=== PATIENT | male | born 1960 | race Caucasian/White ===

== ENCOUNTER 2019-11-29 00:18 | Day surgery (SDC) | payer OTHER, SELFPAY ==
[2019-11-22 12:04] VITALS: BMI 35.6
--- NOTE | 2019-11-29 07:26 | P.PNAN_ITS ---
Anes - Initial Pre Proc Eval Procedure: Operation Date: 11/29/19 08:30 Proposed Procedures p Screening Colonoscopy - Kenton Curran MD Date/Time: 11/29/19 07:26 Surgeon: Kenton Curran MD Pre Op Diagnosis: neoplasm screening, family hx colon polyps Patient Data Age: 59 Gender: M Height: 5 ft 11 in Weight: 116 kg Allergies Allergy/AdvReac Type Severity Reaction Status Date / Time No Known Allergies Allergy Unknown Unverified 11/22/19 12:00 Home Medications Medication Instructions Recorded Confirmed Type atorvastatin 40 mg PO HS 11/22/19 11/22/19 History glucosamine VCb-[id number]-[id number] 2 tablet PO DAILY 11/22/19 11/22/19 History losartan-hydrochlorothiazide 1 tablet PO QAM 11/22/19 11/22/19 History vitamin O68-ukutn acid 1 tablet PO DAILY 11/22/19 11/22/19 History Patient hx anesthesia problems: none Family hx anesthesia problems: none [facility] [place] Past Medical History Medical History (Updated 11/29/19 @ 07:26 by Gary Gaviria MD) Diabetes Hyperlipidemia Hypertension Anes - Eval Final PreProcedure Day of Procedure 11/29/19 07:26 Patient weight: obese Heart: regular rate and rhythm Lungs: clear to auscultation Airway: Mallampati scale class III Neurological: alert and oriented Last oral intake: >/= 8 hours ASA classification: III Emergent: no Anesthetic plan: proceed Anesthesia type and monitoring: general GIVS and standard monitoring Informed Consent: The patient's anesthetic plan and its attendant risks and benefits were discussed with the patient/family/POA. Questions were solicited and answers provided to the satisfaction of the patient/family/POA.
[2019-11-29] MEDS: LACTATED RINGERS 1,000 ML 150 ML IV CONT (07:38)
[2019-11-29 07:51] LABS: Glucose Point of Care 203 (65-105)
[2019-11-29 07:55] VITALS: BP 146/106; PULSE 109; RESP 20; TEMP 36.9; O2SAT 96; BMI 35.7
--- NOTE | 2019-11-29 08:09 | P.CONGI_ITS ---
Assessment and Plan Additional Plan This is a 59-year-old white male patient seen in evaluation at the request of Dr. Radu Ramos. Patient presents for screening surveillance colonoscopy. His current weight appetite bowel movements are normal. He denies any abdominal pain. His bowel habits are regular. He denies any blood in his stools. Family history is significant his mother has had colon polyps. Past medical history is significant for diabetes, hypertension, elevated cholesterol. Current medications include metformin, losartan, hydrochlorothiazide, glucosamine, atorvastatin, aspirin. He has no known drug allergies. Physical exam reveals him to be alert. Oriented x3. HEENT exam unremarkable. He is anicteric. Lungs are clear to auscultation and percussion. Heart is without murmur or extra sounds. Abdominal exam bowel sounds are present soft nontender with no organomegaly. Digital external rectal exam is normal. Impression 1. Family history of colon polyps. 2. Diabetes. 3. Hypertension, 4. Elevated cholesterol. Plan is for surveillance colonoscopy. High-fiber diet is advised. Further recommendations will be given after endoscopy. GI Consult Note Consult date/time: 11/29/19 08:09 HPI: Peyman Sims is a 59 year old male [facility] Past Medical History Medical History (Updated 11/29/19 @ 07:26 by Gary Gaviria MD) Diabetes Hyperlipidemia Hypertension Meds Home Medications and Allergies Home Medications Medication Instructions Recorded Confirmed Type atorvastatin 40 mg PO HS 11/22/19 11/29/19 History glucosamine CAc-chz-[id number] 2 tablet PO DAILY 11/22/19 11/29/19 History losartan-hydrochlorothiazide 1 tablet PO QAM 11/22/19 11/29/19 History vitamin R23-vdifp acid 1 tablet PO DAILY 11/22/19 11/29/19 History aspirin [Adult Low Dose Aspirin] 81 mg PO DAILY 11/29/19 11/29/19 History metformin 500 mg PO DAILY 11/29/19 11/29/19 History Allergies Allergy/AdvReac Type Severity Reaction Status Date / Time No Known Allergies Allergy Unknown Unverified 11/22/19 12:00 Vital Signs Vital Signs - 24 hr 11/29/19 07:55 Temperature 36.9 C Pulse Rate 109 H Respiratory Rate 20 Blood Pressure 146/106 H Pulse Oximetry 96
[2019-11-29 09:08] VITALS: BP 120/78; PULSE 73; RESP 21
[2019-11-29 09:18] VITALS: BP 112/91; PULSE 75; RESP 21
[2019-11-29 09:28] VITALS: BP 121/83; PULSE 74; RESP 20
== END 2019-11-29 10:14 | disposition home or self-care (01) ==
PROVIDERS: PCP Family Medicine; Visit Provider Internal Medicine Gastroenterology
PROC: 0DJD8ZZ Inspection of Lower Intestinal Tract, Via Natural or Artificial Opening Endoscopic (ICD-10-PCS; CPT 45378; principal; 2019-11-29 08:30)
DX: Z12.11 Encounter for screening for malignant neoplasm of colon (principal); D12.5 Benign neoplasm of sigmoid colon; K57.30 Diverticulosis of large intestine without perforation or abscess without bleeding; K64.8 Other hemorrhoids; Z83.71 Family history of colonic polyps; I10 Essential (primary) hypertension; E11.9 Type 2 diabetes mellitus without complications; E78.00 Pure hypercholesterolemia, unspecified; Z79.84 Long term (current) use of oral hypoglycemic drugs; Z79.82 Long term (current) use of aspirin; E66.9 Obesity, unspecified; Z68.35 Body mass index [BMI] 35.0-35.9, adult
CPT/HCPCS: 45385; 88305; J2704; J7120

== ENCOUNTER 2024-01-05 13:10 | Outpatient (CLI) | payer MEDICARE, SELFPAY ==
--- NOTE | ~2024-01-05 | XR_ITS ---
Right Knee Technique: AP, lateral, and sunrise views were obtained. Clinical History: Pain Findings: No fracture or dislocation is seen. There is medial compartment narrowing with moderate ost eophyte formation of the patellofemoral compartment and medial joint line and intercondylar notch. Th ere are probable patellofemoral compartment narrowing.. Leogn-nx-xlvqfcwy joint effusion is seen. Impression: Severe degenerative change of the medial and patellofemoral compartment. Small to moderate joint effusion. Reviewed, dictated and finalized at location M. Impression: Severe degenerative change of the medial and patellofemoral compartment. Small to moderate joint effusion.
--- NOTE | ~2024-01-05 | XR_ITS ---
Left Knee Technique: AP, lateral, and sunrise views were obtained. Clinical History: Pain Findings: No fracture or dislocation is seen. There is moderate tricompartmental osteophyte formation . There is a 1.6 cm loose body at the posterior aspect of the knee joint. Possible additional 8 mm lo ose body posteriorly versus fabella.. Soft tissues are otherwise unremarkable. No joint effusion is s een. Impression: Moderate tricompartmental degenerative change with probable posterior loose bodies, as detailed above . Reviewed, dictated and finalized at location M. Impression: Moderate tricompartmental degenerative change with probable posterior loose bod ies, as detailed above.
== END 2024-01-05 13:11 | disposition home or self-care (01) ==
PROVIDERS: PCP Family Medicine; Visit Provider Orthopaedic Surgery
DX: M25.561 Pain in right knee (principal); M25.562 Pain in left knee; M17.0 Bilateral primary osteoarthritis of knee; M25.461 Effusion, right knee
CPT/HCPCS: 73564

== ENCOUNTER 2024-02-07 08:33 | Outpatient (CLI) | payer MEDICARE, SELFPAY ==
--- NOTE | 2024-02-07 09:06 | ECG_ITS ---
SEE SCANNED COPY FOR CONFIRMED REPORT MTDD
[2024-02-07 09:16] LABS: Hematocrit 51.1 % (42.0-52.0); Hemoglobin 17.5 g/dL (14.0-18.0)
[2024-02-07 09:28] LABS: Hemoglobin A1C 6.5 % (<5.7)
[2024-02-07 09:49] LABS: Albumin Level 4.5 g/dL (3.5-5.1); Estimated Glomerular Filt Rate > 60; Glucose 178 mg/dL (65-110)
== END 2024-02-07 08:34 | disposition home or self-care (01) ==
PROVIDERS: PCP Family Medicine; Visit Provider Orthopaedic Surgery
DX: Z01.818 Encounter for other preprocedural examination (principal); M17.11 Unilateral primary osteoarthritis, right knee; E11.9 Type 2 diabetes mellitus without complications; I10 Essential (primary) hypertension
CPT/HCPCS: 36415; 82040; 82565; 82947; 83036; 85014; 85018; 93005

== ENCOUNTER 2024-08-06 11:23 | Outpatient (CLI) | payer MEDICARE, SELFPAY ==
--- NOTE | ~2024-08-06 | XR_ITS ---
Right Knee Technique: AP, lateral, and sunrise views were obtained. Clinical History: Pain Findings: No fracture or dislocation is seen. There is severe lateral compartment narrowing with bone -on-bone appearance. There is advanced osteophyte formation at the intercondylar notch and lateral basilio int line. There is moderate spurring at the medial compartment and patellofemoral compartment.. Moder ate joint effusion is seen. 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 Moderate joint effusion. Reviewed, dictated and finalized at location M. 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 Moderate joint effusion.
--- NOTE | ~2024-08-06 | XR_ITS ---
Left Knee Technique: AP, lateral, and sunrise views were obtained. Clinical History: Osteoarthritis Findings: No fracture or dislocation is seen. There is medial compartment narrowing. There is moderat e tricompartmental degenerative change/spurring. Loose bodies posteriorly measuring 1.9 and 1.2 cm in diameter.. Soft tissues are unremarkable. No joint effusion is seen. Impression: Moderate tricompartmental degenerative change with posterior loose bodies, possibly within a Quinteros's cyst, as detailed above. Reviewed, dictated and finalized at location M. Impression: Moderate tricompartmental degenerative change with posterior loose bodies, poss ibly within a Quinteros's cyst, as detailed above.
== END 2024-08-06 11:24 | disposition home or self-care (01) ==
PROVIDERS: PCP Family Medicine; Visit Provider Orthopaedic Surgery
DX: M17.11 Unilateral primary osteoarthritis, right knee (principal); M25.461 Effusion, right knee; M17.12 Unilateral primary osteoarthritis, left knee
CPT/HCPCS: 73564

== ENCOUNTER 2024-11-15 11:54 | Outpatient (CLI) | payer MEDICARE, SELFPAY ==
[2024-11-15 13:13] LABS: Basophils Absolute Auto 0.1 K/mm3 (0.0-0.1); Eosinophils Absolute Auto 0.1 K/mm3 (0-0.3); Eosinophils Percent Auto 1.7 % (0-4.4); Hematocrit 50.9 % (42.0-52.0); Hemoglobin 17.8 g/dL (14.0-18.0); Immature Granulocyte Absolute 0.03 K/mm3 (0.00-0.031); Immature Granulocyte Percent A 0.5 % (0-0.5); Lymphocytes Absolute Auto 1.79 K/mm3 (0.9-3.2); Lymphocytes Percent Auto 29.6 % (18.3-44.2); Mean Corpuscular Hemoglobin 31.1 pg (26-34); Mean Corpuscular Volume 88.8 fl (80-100); Mean Platelet Volume 9.2 fl (7.4-10.4); Monocytes Absolute Auto 0.5 K/mm3 (0.1-0.6); Monocytes Percent Auto 7.9 % (2.6-8.5); Neutrophils Absolute Auto 3.6 K/mm3 (1.3-6.7); Neutrophils Percent Auto 59.3 % (45.5-73.1); Platelet Count Result 192 k/mm3 (150-375); Red Blood Count 5.73 M/mm3 (4.6-6.20); Red Cell Distribution Width 12.5 % (11.5-14.5); White Blood Count 6.1 K/mm3 (4.5-10.0)
[2024-11-15 13:25] LABS: Albumin Level 4.5 g/dL (3.5-5.1)
[2024-11-15 13:26] LABS: Hemoglobin A1C 6.7 % (<5.7)
[2024-11-15 13:27] LABS: Urine Cotinine NEGATIVE
[2024-11-15 13:28] LABS: Anion Gap 11 mmol/L (4-12); Blood Urea Nitrogen 18 mg/dL (9-20); Calcium 9.2 mg/dL (8.4-10.2); Carbon Dioxide 27 mmol/L (22-30); Chloride 103 mmol/L (98-107); Estimated Glomerular Filt Rate > 60; Glucose 112 mg/dL (65-110); Potassium 4.2 mmol/L (3.4-5.0); Sodium 141 mmol/L (137-145)
[2024-11-15 14:21] LABS: MRSA (PCR) NOT DETECTED (NOT DETECTE)
== END 2024-11-15 11:55 | disposition home or self-care (01) ==
LOC: ANHSURGERY 12:00
PROVIDERS: Anesthesiology; PCP Family Medicine; Visit Provider Orthopaedic Surgery
DX: Z01.812 Encounter for preprocedural laboratory examination (principal); M17.11 Unilateral primary osteoarthritis, right knee; E11.9 Type 2 diabetes mellitus without complications
CPT/HCPCS: 36415; 80048; 80307; 82040; 83036; 85025; 87641

== ENCOUNTER 2024-12-02 02:47 | Day surgery (SDC) | payer MEDICARE, SELFPAY ==
--- NOTE | 2024-11-15 11:47 | PC.NURSE ---
Report to the Outpatient Waiting Room, entrance under the green pavilion located off [facility], at time 10 AM on date 12/02/24 . Planned Procedure Time: __1200 NOON .? Time changes happen often and if your time is changed the preop area will call you the afternoon before. - You and your visitor will be asked to self-screen and do not enter if you have any COVID symptoms. Please call surgeon if you need to reschedule. - A mask is optional within the hospital at this time. Patients may have clear liquids (water, carbonated beverages, clear teas, apple juice) until 3 hours prior to surgery ( 9 AM) with a maximum of 20 ounces. - No food from midnight until time of surgery and no smoking. This includes no chewing gum, candy or mints. Take only the following medications with a SIP of water on the morning of surgery: NONE DO NOT STOP ANY OF YOUR OTHER PRESCRIPTION MEDICATIONS PRIOR TO SURGERY EXCEPT THE FOLLOWING Medications to discontinue per physician HOLD ALL VITAMINS AND SUPPLEMENTS 3 DAYS PRE OP Date to take last dose__11/28/24 Please no make-up, nail bengali, hairspray, perfume, deodorant, or body powder the day of surgery.? No jewelry (including any body piercings) or valuables the day of surgery, leave them at home.? Please take a shower or bath the night before, or the morning of, surgery with an antibacterial soap.? Wear comfortable, loose fitting clothing.? Children are encouraged to wear pajamas. - Jewelry must be removed prior to entering the operating room.? Rings and piercings that are not removed may be cut off. - The hospital will not accept responsibility for valuables.? - Please leave all valuables, including medications, at home the day of surgery. If you are going home after surgery, a licensed xm[employer] tank driver must drive you home.? - NO public transportation without another adult if you receive anesthesia. - We recommend that an adult stay with you for 24 hours following discharge. - We also recommend that you do not drive, make important decision, drink alcoholic beverages, or take any drugs that were not prescribed by your health care provider for at least 24 hours after your discharge time. Follow any additional instructions given to you from your surgeon. VERBAL AND WRITTEN instructions given to _PATIENT__AND CHAD and asked if any additional questions and then verbalized understanding. Patient advised to call surgeon office or pre surgery nurse liaison [phone] if any additional questions.
[2024-11-15 12:04] VITALS: BMI 33.3
[2024-11-15 12:41] VITALS: BP 137/90; PULSE 92; RESP 18; TEMP 36.7; O2SAT 98
[2024-12-02] VITALS (9 sets, daily range): BP systolic 140–165; BP diastolic 78–100; PULSE 71–89; RESP 12–20; TEMP 36.6–37.4; O2SAT 95–99; BMI 33.2
--- NOTE | ~2024-12-02 | XR_ITS ---
EXAMINATION: [id number] DATE: 12/02/2024 15:19 INDICATION: Right knee arthroplasty. Postop. TECHNIQUE: 2 views of right knee were obtained. COMPARISON: Right knee radiographs 08/06/24 FINDINGS: There is a total right knee arthroplasty with patellar resurfacing. Tibia demonstrates 7 de grees medial angulation with respect to the tibial component. No fracture. There is gas in the knee j oint and soft tissues, consistent with recent surgery. IMPRESSION: 1. New total right knee arthroplasty. Reviewed, dictated and finalized at location A. [facility]
--- OUTSIDE RECORDS SUMMARY | 2024-12-02 02:50 | XMS_ITS | Data Portability ---
Author Organization [place] - [facility], Main Office Address [address] [place] [address] Care Team Providers Care Search Developer Name Role Phone HODA CHOI Primary Care Provider HODA CHOI Referring Provider Assessment Encounter Date Assessment Date Assessment LastModified by Organization Details LastModified Time 02/21/2023 02/21/2023 Patient presents knee pain left greater than right. He has significant arthritis in both knees. 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 If for his right and left knees got vpen-rm-eovk change medially and he has got significant pain with any manipulation. Neurologically he is intact. Will try an injection this done with 20 mg Kenalog 4 cc 1% lidocaine. For prescription drug management will try prednisone taper. He will continue with exercises at home. Follow-up in a month. If no better he will need knee replacement surgery. [email or web address] Not available 02/21/2023 15:55:15 03/23/2023 03/23/2023 Patient returns knee pain left greater than right. He has arthritis in both knees significant valgus deformity on the right and moderate varus deformity on the left, the left knee is the most painful one. I injected the left knee and gave him a prednisone taper he seems to have the pain seems to have resolved to a large degree he can live with what he has at this point clearly he will need knee replacement surgery at some point however I told him when he is ready we can do it he is not having too much pain at this point wants leave it alone discussed. [email or web address] Not available 03/23/2023 11:22:19 06/12/2023 06/12/2023 Patient returns with arthritis right and left knee. The right left 1 is much more painful. He got good relief the injection adjusted last. He remains symptomatic. He does have some mechanical catching and pain in the knee and I recommended an MRI scan to make sure he does not have a tear. The arthritis in his right knee is much worse but it is right knee does not hurt as badly as his left. I reinjected the left knee with 20 mg Kenalog 4 cc 1% lidocaine. For prescription drug management will try Voltaren for pain and inflammation. We will get an MRI scan to evaluate for meniscal pathology. As he is having more pain in the less arthritic knee. [email or web address] Not available 06/12/2023 11:06:28 06/19/2023 06/19/2023 Patient returns knee pain left. Despite the fact he has more arthritis in his right knee is left knee is what is bothering him at this point. He got somewhat better after the injection that I gave him however he does have catching and locking in the knee consistent with meniscal tear. He presents with an MRI scan. I reviewed the pictures and the report with the patient in detail and they show a meniscal tear. I recommended arthroscopic intervention for his medial meniscal tear. Discussed risks benefits limitations and alternatives in detail. I will see him back in a month after the surgery is performed discussed. [email or web address] Not available 06/19/2023 09:48:01 Plan of Treatment Reminders Order Date Submit Date Provider Last Modified By Organization Details Last Modified Time Details Appointments None recorded. Lab BMP, serum or plasma - Please fax results to DX Diabetes 2022 023 [email or web address] In-Office Order, Internal Use Only DO Not Attach Compendium DO Not Attach Compendium, Do Not Delete/merge, [id number] 10:20:36 Referral None recorded. Procedures injection/a spiration joint/bursa (PROC) - in office procedure, administere d by provider 2022 023 [email or web address] In-Office Order, Internal Use Only DO Not Attach Compendium DO Not Attach Compendium, Do Not Delete/merge, [id number] 3 15:29:26 injection/a spiration joint/bursa (PROC) - in office procedure, administere d by provider 2022 023 [email or web address] In-Office Order, Internal Use Only DO Not Attach Compendium DO Not Attach Compendium, Do Not Delete/merge, [id number] 3 10:42:05 Surgeries None recorded. Imaging XR, knee 2022 023 [facility] [place], [address], [place], [address], 3 15:55:04 MRI, knee, w/o contrast 2022 023 [email or web address] [facility], [address], [place], [address], 3 12:14:48 electrocard iogram - Please fax results to [phone] [facility] 2022 023 [email or web address] In-Office Order, Internal Use Only DO Not Attach Compendium DO Not Attach Compendium, Do Not Delete/merge, [id number] 3 11:50:44 Medication Orders Kenalog 10 mg/mL suspension for injection 2022 023 [email or web address] [address] [facility] #62782, [address] [place], [place], [id number], 3 15:48:56 ropivacaine (PF) 5 mg/mL (0.5 %) injection solution 2022 023 [facility] #80694, [address], [place], [id number], 3 15:48:56 prednisone 10 mg tablets in a dose pack 2022 023 [facility] #88991, [address], [place], [id number], 3 15:48:56 Kenalog 10 mg/mL suspension for injection 2022 023 [facility] #23127, [address], [place], [id number], 3 10:45:09 ropivacaine (PF) 5 mg/mL (0.5 %) injection solution 2022 023 [facility] #86393, [address] [facility], [place], [place], [id number], 3 10:45:09 diclofenac sodium 75 mg tablet,marvin yed release 2022 023 [facility] #77672, [address], [place], [id number], 3 11:07:40 Patient TargetsNo targets recorded. Patient InstructionsNo instructions recorded. Reason for Referral None Reported. Results Created Date Observation Date Name Description Value Unit Range Abnormal Flag Note LastModifiedBy Organization Detail LastModifiedTime 02/22/20 23 XR, knee No observ ation record ed. [email or web address] [facility] [place] [address], [place], [address], 02/21/2023 15:55:04 06/14/20 23 MRI knee lt wo [facility] [address] [address] Patien t Name: BLAKE SIMS Access ion #: [id number] Sex: M : 1959 Dictat ed By: Dea merino Physic herman: Rachael Physic herman: LINDA WOOD Exam Date: 2022 09:22 AM Exam Name: MRI KNEE LT WO Admitt ing Diagno sis(es ): CLINIC AL INFORM ATION: Pain. Medial pain. No known injury . COMPAR BEA: None. TECHNI TREVA INFORM ATION: Multis equenc e multip lanar MRI images of the left knee were obtain ed withou t contra st. During was perfor med and an open MRI scanne r with 0.3 Radha magnet , which limits evalua tion compar ed to higher field streng th MRI scanne rs. INTERP RETATI ON: Crucia te ligame nts: ACL and PCL appear intact . Extens or mechan ism: Thania ceps mechan ism and patell ar tendon are intact . Mild fluid in the prepat ellar and superf icial infrap atella r soft tissue s. Collat eral ligame nts: Trace fluid along the superf icial fibers of the medial collat eral ligame nt consis tent with a grade 1 sprain . Latera l collat eral ligame nt appear s intact . Menisc i: Horizo ntal tear in the body of the medial menisc us extend ing near the body/a nterio r horn juncti on. Suspec cherrie flap compon ent of the tear extend ing into the adjace nt inferi or gutter . No tear identi fied in the latera l menisc us. Cartil age: Modera te chondr al frayin g and fissur ing in the medial compar tment. Severe chondr al thinni ng, frayin g, and likely modera te fissur ing in the patell ofemor al compar tment, althou gh limite d evalua tion of the articu lar cartil age on this exam due to techni que/fi eld streng . Bones: No eviden ce of acute fractu re. Arthri tic change s in the medial compar tment with joint space narrow ing, subcho ndral cystic change , and promin ent margin al osteop hytes. Joint fluid: No signif icant joint effusi on. Poplit eal cyst measur es up to 6 cm proxim al to distal dimens ion. There are T2 hypoin tense loose bodies within the poplit eal cyst. 1.4 cm cystic struct ure manager employment ior to the latera l femora l condyl e, appear s techni que 8 with the joint, likely gangli on cyst. Other: No other signif icant findin gs. Page 1 [facility] [address] [place] [address] Patien t Name: BLAKE SIMS Access ion #: [id number] Sex: M : 1959 Dictat ed By: Dea soni Attend ing Physic herman: , Rachael ferrara Physic herman: LINDA WOOD Exam Date: 2022 09:22 AM Exam Name: MRI KNEE LT WO Admitt ing Diagno sis(es ): CONCLU BLAYNE: 1. Horizo ntal tear in the body of the medial menisc us with suspec cherrie flap compon ent extend ing into the adjace nt inferi or gutter . 2. Grade 1 sprain of the MCL. 3. Chondr omalac ia in the medial and patell ofemor al compar tments , subopt imally evalua cherrie due to techni treva factor s in this exam. 4. Poplit eal cyst with loose bodies . 5. Likely gangli on cyst along the manager employment ior aspect of the latera l compar tment. 6. Additi onal findin gs as detail ed above. Electr onical ly Signed by: Dea soni at 2022 17:03: 38 PM Page [address] (Imaging) [address] [place], [address], 06/15/2023 07:41:43 Result Notes None recorded. Problems Name Problem SNOMED Code Status Onset Date Resolution Date Notes Provider Name and Address Organization Details Recorded Time Type 2 diabetes mellitus 59814306 Active 2018 Not Available [employer] 3 17:45:25 Pain of left knee joint 7959786776886 07 Active 2022 JOSE DE JESUS Moore, [employer] 3 15:07:35 Bilateral osteoarthr itis of knees 0903860820528 07 Active 2022 Linda Anderson MD [address] [facility], [address], [place], [address] , [employer] 3 15:53:41 Tear of medial meniscus of knee 932586148 Active 2022 Linda Anderson MD [address] [facility], [place] [address], [place], [address] , [facility] [employer] [facility] 3 11:06:40 Problem Notes None recorded. Procedures Surgical History Date Name Laterality Status Provider Name and Address Organization Details Recorded Time 3 Ortho - Cortisone Injection completed Linda Anderson MD [address] [facility], [address] [address], [place], [address], [facility] [employer] [facility] 06/12/2023 11:05:12 3 Ortho - Cortisone Injection completed Linda Anderson MD [address] [facility], [address] [address], [place], [address], [facility] [employer] [facility] 02/21/2023 15:53:03 5 Knee completed Saima Julian CNA [facility] [employer] [facility] 02/21/2023 15:07:08 Imaging Results Imaging Date Name Status LastModified by Organiz ation Details LastModified Time 02/21/2023 XR, knee completed sandhya [facility] [place] [address], [place], [address], 02/21/2023 15:55:04 06/14/2023 MRI knee lt wo completed sandhya [facility] (Imaging) [address] [place], [address], 06/15/2023 07:41:43 Procedure Notes None recorded. Medical Equipment None Reported. Allergies No known drug allergies Medications Name Sig Start Date Stop Date Status Note LastModified by Organization Details LastModified Time atorvastati n 40 mg tablet TAKE 1 TABLET BY MOUTH EVERY DAY active Not Available Not Available No t Available metformin 500 mg tablet Take 1 tablet every day by oral route. 02/21 completed Not Available Not Available Not Available prednisone 10 mg tablet active Not Available Not Available Not Available meloxicam 15 mg tablet 07/07 completed Not Available Not Available Not Available sildenafil 100 mg tablet TAKE 1 TABLET BY MOUTH ONCE DAILY NEEDED 02/21 completed Not Available Not Available Not Available prednisone 10 mg tablets in a dose pack Take 1 tab by mouth, 3 times a day for 3 daysTake 1 tab by mouth 2 times a day for 2 daysTake 1 tab by mouth once a day for 1 day 2022 active Not Available Not Available Not Avai lable Kenalog 10 mg/mL suspension for injection in office 2022 active [facility]: 0003- 0494- 20 Not Available Not Available Not Available cephalexin 500 mg capsule Take 1 capsule 3 times a day by oral route for 10 days. 04/01 completed Not Available Not Available Not Available diclofenac sodium 75 mg tablet,marvin yed release TAKE 1 TABLET BY MOUTH TWICE DAILY active Not Available Not Available No t Available losartan 100 mg tablet 04/01 completed Not Available Not Available Not Available metformin ER 500 mg tablet,exte nded release 24 hr TAKE 1 TABLET BY MOUTH TWICE DAILY active Not Available Not Available No t Available ropivacaine (PF) 5 mg/mL (0.5 %) injection solution in office 2022 active [facility] [address] -[phone] Not Available Not Available Not Available Farxiga 10 mg tablet TAKE 1 TABLET BY MOUTH DAILY active Not Available Not Available No t Available Vitals Date Recorded Body height Body mass index (BMI) Body weight Provider Name and Address Organization Details Last Updated DateTime 02/21/2023 180.34 cm 34.2 kg/m2 555815.13 g Saima Julian CNA [employer] 02/21/2023 15:05:41 Date Recorded Body height Body mass index (BMI) Body weight Provider Name and Address Organization Details Last Updated DateTime 03/23/2023 180.34 cm 34.2 kg/m2 508518.13 g Saima Julian CNA [employer] 03/23/2023 11:01:03 Date Recorded Body height Body mass index (BMI) Body weight Provider Name and Address Organization Details Last Updated DateTime 06/12/2023 180.34 cm 34.2 kg/m2 494870.13 g GURINDER Vick [employer] 06/12/2023 10:40:52 Date Recorded Body height Body mass index (BMI) Body weight Provider Name and Address Organization Details Last Updated DateTime 06/19/2023 180.34 cm 34.2 kg/m2 653911.13 g Saima Julian CNA [employer] 06/19/2023 09:30:28 Social History Question Answer Notes LastModified by Organizat ion Details LastModified Time Tobacco Smoking Status Never Smoker Saima Julian CNA null, [employer] 02/21/2023 15:06:55 What Is Your Level Of Alcohol Consumption? Occasional [email or web address] Information not available 02/21/2023 Sex: Unknown Functional Status None recorded. Mental Status None recorded. Family History Relationship Description Onset Age of this Age Resolved Age Notes LastModified by Organization Details LastModified Time Mother Family history of malignant neoplasm [email or web address] Not available 2022 15:06:30 Father Hypertensive disorder [email or web address] Not available 2022 15:06:42 Medical History Condition Response DIABETES, TYPE Y Immunizations Vaccine Type Date Status Note Provider Nam e and Address Organization Details Recorded Time Tdap 07/18/2019 completed Not Available [employer] 12/21/2022 17:47:36 Past Encounters Encounter ID Performer Location Encounter Start Date Encounter Closed Date Diagnosis/Indication Diagnosis SNOMED-CT Code Diagnosis ICD10 Code Diagnosis Note [id number] Linda Anderson MD [facility] [place] [address] [place] [address] 02/21/2023 14:54:42 02/21/2023 15:48:18 Pain of left knee joint 6576002639 57474 M25.562 Bilateral osteoarthritis of knees 8411549699 18419 M17.0 [id number] Linda Anderson MD [facility] [place] [address] [place] [address] 03/23/2023 10:54:08 03/23/2023 11:24:20 Pain of left knee joint 5780711382 00544 M25.562 Bilateral osteoarthritis of knees 8605851560 91593 M17.0 [id number] Linda Anderson MD [facility] [place] [address] [place] [address] 06/12/2023 10:37:18 06/12/2023 11:09:17 Pain of left knee joint 7479989664 50709 M25.562 Bilateral osteoarthritis of knees 3475488729 34987 M17.0 Tear of me dial meniscus of knee 456025469 S83.242A [id number] Linda Anderson MD [facility] [place] [address] [place] [address] 06/19/2023 09:28:21 06/19/2023 10:06:58 Bilateral osteoarthritis of knees 0111920987 44751 M17.0 Tear of me dial meniscus of knee 964233093 S83.242A Pain of le ft knee joint 5389346767 48689 M25.562 Pre-surger y evaluation 722501227 Z01.818 Health Concerns Section Related Observation LastModified by Organization Detai ls LastModified Time None Recorded Concern Status LastModified by Organization Details LastModified Time None Recorded Advance Directives Directive None Recorded Payers Encounter Date Sequence Insurance Name Policy Number Policy Vargas Covered Member ID Vargas Member ID Guarantor Name 02/21/2023 1 [place] [id number] [place] [id number] Peyman Rendonint 03/23/2023 1 [place] [id number] [place] [id number] [place] 06/12/2023 1 [facility] (MEDICARE REPLACEMENT/A DVANTAGE - HMO) [id number] [address] [place] [id number] Peyman Rendonint 06/19/2023 1 [facility] (MEDICARE REPLACEMENT/A DVANTAGE - HMO) [id number] Vijay [address] [place] [id number] Peyman Sims Notes Date Note Type Note Provider Name and Address Organization Details Recorded Time 02/21/2023 text/html Patient presents knee pain bilaterally left greater than right. I saw him 7 years ago and told him he needed a knee replacement he has not got 1 hand. Interestingly a lot of pain in the right knee then and has developed progressive valgus deformity. Of note is the fact however today his left knee hurts more than his right. Linda Anderson MD [address] [place] [address], [facility] [address], [place], [address], [facility] [employer] [facility] 02/21/2023 15:56:04 03/23/2023 text/html Patient presents knee pain bilaterally left greater than right. I saw him 7 years ago and told him he needed a knee replacement he has not got 1 hand. Interestingly a lot of pain in the right knee then and has developed progressive valgus deformity. Of note is the fact however today his left knee hurts more than his right. Linda Anderson MD [address], [place], [address], [employer] 03/23/2023 11:22:37 06/12/2023 text/html Patient presents knee pain bilaterally left greater than right. I saw him 7 years ago and told him he needed a knee replacement he has not got 1 hand. Interestingly a lot of pain in the right knee then and has developed progressive valgus deformity. Of note is the fact however today his left knee hurts more than his right. Linda Anderson MD [address], [place], [address], [employer] 06/12/2023 11:07:36 06/19/2023 text/html Patient presents knee pain bilaterally left greater than right. I saw him 7 years ago and told him he needed a knee replacement he has not done that. He has a lot of pain in the right knee then and has developed progressive valgus deformity. Of note is the fact however today his left knee hurts more than his right. He has catching and locking of his left knee medially and pain to palpation manipulation. Linda Anderson MD [address], [place], [address], [employer] 06/19/2023 09:49:18
[2024-12-02] MEDS: ACETAMINOPHEN 500 MG TABLET 1000 MG PO (10:22)
[2024-12-02 10:49] LABS: Glucose Point of Care 190 mg/dl (65-105)
--- NOTE | 2024-12-02 11:35 | WPDANESEPPF ---
Anes - Initial Pre Proc Eval Procedure: Operation Date: 12/02/24 12:00 Proposed Procedures p Right Total Knee Arthroplasty - Shravan Mart MD Date/Time: 12/02/24 11:35 Surgeon: Shravan Mart MD Pre Op Diagnosis: primary OA right knee Patient Data Age: 64 Gender: M Height: 1.8 m Weight: 108 kg Last Vital Signs Temp 98.1 F 12/02/24 10:00 Pulse 89 12/02/24 10:00 Resp 16 12/02/24 10:00 BP 159/100 H 12/02/24 10:00 Pulse Ox 99 12/02/24 10:00 O2 Del Method Room Air 12/02/24 10:00 Allergies Allergy/AdvReac Type Severity Reaction Status Date / Time No Known Allergies Allergy Unknown Verified 12/02/24 10:50 Home Medications ?Medication ?Instructions ?Recorded ?Confirmed ?Type vitamin B12 500 mcg-folic acid 400 1 tablet PO DAILY 11/22/19 12/02/24 History mcg tablet omega 9-kov-zpd-fish oil 100 1 cap PO DAILY 11/27/23 12/02/24 History mg-160 mg-1,000 mg capsule (Fish Oil) metformin 500 mg tablet,extended 1,000 mg (2 x 500 mg) PO DAILY 90 07/29/24 12/02/24 Rx release 24 hr days #180 tabs atorvastatin 40 mg tablet 40 mg PO HS #90 tabs 08/05/24 12/02/24 Rx lisinopril 10 mg tablet 10 mg PO DAILY #100 tabs 09/06/24 12/02/24 Rx dapagliflozin propanediol 10 mg 10 mg PO DAILY #90 tabs 10/11/24 12/02/24 Rx tablet (Farxiga) apple cider vinegar 600 mg capsule 600 mg PO DAILY 11/15/24 12/02/24 History berberine chloride 500 mg capsule 1,200 mg PO DAILY 11/15/24 12/02/24 History Laboratory Tests 12/02/24 12/02/24 10:21 10:42 POC Capillary Glucose 190 H mg/dl (65-105) Blood Type Pending Antibody Screen Pending Patient hx anesthesia problems: none Family hx anesthesia problems: none Results Review: All pre-operative results and documents have been reviewed as part of the pre-operative evaluation. [facility] Past Medical History Medical History Essential (primary) hypertension Obesity Type 2 diabetes mellitus without complications Hyperlipidemia Diabetes Surgical History Surgical History H/O knee surgery R, cartilage removed 1975 History of inguinal herniorrhaphy 1966 Family History Family History Father Hypertension Diabetes mellitus Hyperlipidemia Mother Cerebrovascular accident Grandparent COPD (chronic obstructive pulmonary disease) Social History Social History Smoking status: Never smoker Alcohol intake: current Substance use: never Substance use type: does not use Do You Feel Safe in your Home?: Yes Lack of Transportation: No Lack of Food: Never True Current Housing: I Have Housing Concerned About Future Housing: No Difficulty Paying Gas/Electric Bills: No Difficulty Paying for Meds: No Currently Unemployed: No Education: Trade/Vocational Certificate Difficulty w/ Childcare or Family Care: No Living arrangements: with family Occupation/Education: occupation Gender identity (if verbalized by the patient): Male Sexual Orientation (if Verbalized by the Patient): Straight or Heterosexual Anes - Eval Final PreProcedure Day of Procedure 12/02/24 11:35 Patient weight: obese Lungs: normal air movement Airway: Mallampati scale class II Neurological: alert and oriented Last oral intake: >/= 8 hours ASA classification: III Emergent: no Anesthetic plan: proceed Anesthesia type and monitoring: general GIVS and standard monitoring Results Review: All pre-operative results and documents have been reviewed as part of the pre-operative evaluation. HTN, hyperlipidemia, obestiy, DM fsbs 190 today. Informed Consent: The patient's anesthetic plan and its attendant risks and benefits were discussed with the patient/family/POA. Questions were solicited and answers provided to the satisfaction of the patient/family/POA.
[2024-12-02] MEDS: TRANEXAMIC ACID 1,000MG/ISO100 1,000 MG/100 ML BAG 200 MG IVPB (11:40)
--- NOTE | 2024-12-02 12:03 | WPDHPUPDATE1 ---
History and Physical Update Update Date/Time: 12/02/24 12:03 History and Physical has been reviewed, including an updated exam of the patient. There are NO changes in the patient's condition. Risks, benefits, and alternatives have been discussed and questions answered. Patient agrees to proceed with procedure.
[2024-12-02] MEDS: ceFAZolin 2 GM/D5W 50 ML 2 GM/50 ML BAG IVPB ×2 (12:17→20:47)
[2024-12-02] MEDS: SODIUM CHLORIDE 0.9% IV 37.7 ML, MORPHINE SULFATE INJ (*CRX) 2 MG, ROPivacaine HCL 1% 2... INFILTRATE (12:50)
[2024-12-02] MEDS: GENTAMICIN BONE CEMENT REFOBACIN 1 EACH TOPICAL (12:59)
[2024-12-02] MEDS: LACTATED RINGERS 1,000 ML 30 ML IV CONT ×3 (14:54)
[2024-12-02 15:11] LABS: Glucose Point of Care 197 mg/dl (65-105)
--- NOTE | 2024-12-02 15:30 | W.PM.PROC2 ---
Procedure Note - Detailed Date of Procedure 12/02/24 Pre-op Diagnosis Right knee degenerative arthritis. Post-op Diagnosis Same Procedure Performed Calipe[place], kinematically aligned total knee replacement right knee. Surgeon Shravan Mart MD Holter Scanning Technician Miriam Collier PA-C Anesthesia General Indications Severe valgus arthritis with moderate deformity. Findings According to the calipered kinematic alignment principles, the knee was balanced by the following verification checks incorporating 6 caliper measurements, using an insert goniometer to select the insert thickness, and adjusting the tibial resection following the kinematic alignment algorithm (see figure 160.10 published in [facility] chapter on kinematic alignment total knee arthroplasty.) The steps verified the femoral and tibial components were kinematically aligned coincident to the patient's pre arthritic joint lines, which closely restored the [place] tibial compartment forces and ligament laxities without ligament release. The Surphaceacta WebNotesK SperiKA knee, designed specifically for kinematic alignment, fit optimally. The record of verification checks were documented and scanned into the chart. Distal Femoral Resection: Distal lateral 6 mm(cartilage worn), Distal medial 8 mm Target thickness of 8mm Unworn, 6mm Worn (No Cartilage). Posterior Femoral Resection: Posterior lateral 5 mm(cartilage worn), Posterior medial 8 mm. Target thickness of 7mm Unworn, 5mm Worn (No Cartilage). The popliteus was damaged and excised. Partial PCL release off the posterior tibia. No other significant releases required. Description of Procedure General anesthesia was administered. A well-padded tourniquet was placed high on the thigh. The limb was prepped and draped in the usual sterile fashion. The limb was exsanguinated and the tourniquet inflated to 300 mmHg. A longitudinal incision was created over the midline of the knee. Sharp dissection was taken through subcutaneous tissues. Electrocautery was used for hemostasis. A trivector approach to the knee joint was performed. The ACL, anterior horns of the menisci, and fat pad were excised, and a subperiosteal dissection was carried along the posterior medial border of the tibia. The thickness of the [place] patella was measured with a caliper. The patella was resected using the oscillating saw. The best fitting anatomic patella button was selected. The fixation holes were drilled. When the patella and patella buttons combined thickness was thicker than the [place] patella, the patella was recut. Starting midway between the top of the notch in the anterior femoral cortex, I drilled a 9 mm diameter hole parallel to the anterior cortex to minimize flexion of the femoral component and promote patella tracking. I verified the existence of a 5-10 mm bone bridge between the posterior aspect of the hole and the anterior limit of the intercondylar notch. An intraosseous positioning carlos alberto was inserted 10 cm into the femur perpendicular to the distal joint line and parallel to the anterior cortex. I used a distal femoral referencing guide that compensated 2 mm when the cartilage was worn on the distal medial femoral condyle, and 2 mm when the cartilage was worn on the distal lateral femoral condyle. The basis for setting the distal and posterior femoral resection guide is knowing that the varus and valgus grade II to IV Kellegren-Lenny osteoarthritic knees have negligible bone wear at 0? and 90? and that the mean full-thickness cartilage wear approximates 2 mm. I measured the thickness of distal femoral resections with a caliper to +/- 0.5 mm. The thickness of each resection was adjusted to match the thickness of the respective condyle of the femoral component within 0.5 mm of target after compensating for cartilage wear and kerf. When the distal resection was 1-2 mm too thin, a recut guide was used to adjust the cut. When the distal resection was too thick, a 1 or 2 mm thick washer was fixed to the back of the 4-in-1 chamfer block to shirin a corrective gap between the femoral component and distal femur. I set posterior femoral referencing guide at 0? orientation to position the pin holes for the 4 in 1 chamfer block. The halima wing measured the width of the distal femoral resection and selected the size of the 4 in 1 chamfer block and femoral component. The AP sizer confirmed the size. I measured the thickness of the posterior femoral resections with a caliper before making the anterior and chamfer cuts. I adjusted the thicknesses of each resection to match the thickness of the respective condyle of the femoral component within +/-0.5 mm after compensating for cartilage wear and curve. When a posterior resection femoral resection was 1-2 mm too thick or thin a corrective correction was made by shifting or rotating the 4 in 1 chamfer block as needed. The chamfer block was secured in the correct position with compression screws. The anterior and chamfer femoral resections were made. These caliper measurements and corrections verified that the femoral component was set coincident with the patient's pre-arthritic distal and posterior femoral joint lines. I removed all the medial and lateral femoral and tibial osteophytes to restore the pre arthritic length of the medial and lateral collateral ligaments. I ailin AP lines along the major axis of the lateral tibial plateau in between the tibial spines which identified the flexion extension plane of the knee. A conventional extramedullary tibial resection guide was applied to the ankle. An halima wing was placed medially in the saw slot. The varus valgus angle of the tibial resection guide was adjusted until the guide paralleled the proximal tibial articular surface after compensating for cartilage and bone wear. The slope of flexion extension angle of the tibial resection guide was adjusted until the halima wing paralleled the slope of the medial tibia after compensating for wear. The AP axis of the tibial resection guide was adjusted parallel to the two lines. The proximal tibia was resected, partially releasing the insertion of the posterior cruciate ligament. The thickness of the medial and lateral lateral tibial condyle was measured at the base of the tibial spines. I visually verified the slope of the medial border of the resection was parallel to the patient's pre arthritic slope after compensating for cartilage and bone wear. I removed the remnants of the posterior horns of the menisci and posterior osteophytes and cauterized the inferior lateral genicular vessels. The Aquamantys bipolar device was also used to for additional hemostasis. When the knee had a preoperative flexion contracture of 20? or more I teased the capsule off the posterior femur with a curved 3 quarter-inch osteotome. I administered the posterior femoral periosteal injection by delivering 10 cc using a 20 gauge spinal needle at the most medial and 10 cc at the most lateral femoral spur surface which reduced the risk of injury to the posterior neurovascular structures. I followed 6 options in a decision tree to fine tune the varus valgus and posterior slope orientation of the tibial component to restore the patient's pre arthritic tibial joint line and limb alignment. First, I adjusted the varus-valgus orientation of the proximal tibia resection working in 1 degree to 2 degree increments until there was negligible medial and lateral lift off of the distal femoral and proximal tibial resection from the spacer block during a varus valgus laxity assessment in extension. I selected the largest anatomic shape trial tibial base plate that fit within the cortical boundary of the proximal tibial resection. The base plate was best fit parallel to the cortical boundary which set the Internal-external orientation of the anterior to posterior and medial to lateral positions. The best fit method set the AP axis of the tibial base plate and insert parallel to the flexion extension plane of the pre arthritic knee. I pinned the trial tibial base plate, prepared the cruciate slot, and fixed the base plate to the tibia with the cruciate stem. I inserted the trial femoral component. The knee was placed in full extension. Varus valgus laxity is of the knee with trial components were assessed. When asymmetric laxity was observed a 1-2 degree varus or valgus recut guide was used to fine tune the tibial resection until the laxity was 1 degree or less in full extension like the [place] knee. The following steps determined the optimal insert thickness within +/-1 mm. First I inserted an insert goniometer that matched the thickness of the spacer block. I reduced the patella and then with the knee in maximum extension, I verified the knee hyperextended a few degrees and had negligible varus valgus laxity, like the pre arthritic knee. Next, I measured the external tibial orientation which was the angle the insert goniometer intersected the sagittal line on the medial condyle of the femoral trial component. Then with the knee in 15-30 degrees flexion I verified a 3-4 mm gap in the lateral compartment and no gap in the medial compartment during a 2nd varus valgus laxity test. Next, I placed the knee in 90? of flexion and the foot resting on the operating table and measured the internal tibial orientation. I repeated the steps until I identified the insert thickness that provided the highest external tibia orientation in extension and the highest internal tibial orientation at 90? flexion without anterior lift-off of the insert from the tibial base plate. The insert with this thickness was implanted. I applied a posterior drawer test with the tibia distracted by gravity and verified no posterior subluxation of the tibia relative to the femur. The patella remained centered on the trochlea and tracked well throughout the entire arc of flexion and extension. I used pulse lavage to clean the bony surfaces of debris and dried bone. I cemented the tibial, femoral, and patellar components using 1 bag of methylmethacrylate with Gentamycin, then rechecked the stability at full extension, 15-30 degrees, and 90? flexion and verified adventist of the entire arc of motion of the knee. The circulating nurse confirmed the sponge and needle counts were correct. I used pulse lavage to rinse the joint and wound. The extensor mechanism was closed with interrupted #1 Vicryl suture and #1 running Stratafix suture. The subcutaneous layer was closed with interrupted #1 Vicryl suture followed by 2-0 Stratafix and 3-0 Stratafix. Steri-Strips placed on the skin. Silver impregnated occlusive dressing applied to the wound. A light gauze wrap and Nathaniel bandage were placed. The patient was transferred to the recovery room in stable condition. There were no complications. Implants Medacta GMK spheriKA Femoral component SpheriKA size 5, tibial component size 5, vitamin-E flex insert, thickness 14mm, Anatomic patella implant size 3. Estimated Blood Loss 50 Drains No Pathology None sent Complications No immediate complications Condition Stable Disposition PACU [facility] Billing Surgery - Charge Forward: Surgery Billing
[2024-12-02] MEDS: MELOXICAM 7.5 MG TABLET PO (17:57)
[2024-12-02] MEDS: predniSONE 5 MG TABLET PO (17:57)
[2024-12-02] MEDS: SENNA/DOCUSATE SODIUM TABLET 2 TAB PO (17:58)
[2024-12-02] MEDS: ACETAMINOPHEN 325 MG TABLET 650 MG PO ×2 (17:59→23:19)
[2024-12-02] MEDS: ATORVASTATIN 40 MG TABLET PO (20:47)
[2024-12-02] MEDS: FAMOTIDINE 20 MG TABLET PO (20:47)
[2024-12-02] MEDS: ASPIRIN 81 MG ENTERIC TABLET PO (20:47)
[2024-12-03 00:15] VITALS: BP 161/87; PULSE 92; RESP 20; TEMP 37.1; O2SAT 97
[2024-12-03] MEDS: ceFAZolin 2 GM/D5W 50 ML 2 GM/50 ML BAG IVPB (04:32)
[2024-12-03 04:55] VITALS: BP 150/89; PULSE 76; RESP 20; TEMP 36.4; O2SAT 97
[2024-12-03] MEDS: ACETAMINOPHEN 325 MG TABLET 650 MG PO (05:15)
[2024-12-03 06:49] LABS: Basophils Percent Auto 0.2 % (0.2-1.2); Eosinophils Percent Auto 0.2 % (0-4.4); Hematocrit 43.4 % (42.0-52.0); Hemoglobin 15.3 g/dL (14.0-18.0); Immature Granulocyte Absolute 0.08 K/mm3 (0.00-0.031); Immature Granulocyte Percent A 0.8 % (0-0.5); Immature Platelet Fraction Pct 2.1 % (0.9-11.2); Lymphocytes Absolute Auto 1.21 K/mm3 (0.9-3.2); Lymphocytes Percent Auto 12.3 % (18.3-44.2); Mean Corpuscular HGB Conc 35.3 g/dl (32-36); Mean Corpuscular Hemoglobin 31.2 pg (26-34); Mean Corpuscular Volume 88.6 fl (80-100); Mean Platelet Volume 9.2 fl (7.4-10.4); Monocytes Percent Auto 10.6 % (2.6-8.5); Neutrophils Absolute Auto 7.5 K/mm3 (1.3-6.7); Neutrophils Percent Auto 75.9 % (45.5-73.1); Platelet Count Result 152 k/mm3 (150-375); Red Cell Distribution Width 12.6 % (11.5-14.5); White Blood Count 9.9 K/mm3 (4.5-10.0)
[2024-12-03 06:58] LABS: Anion Gap 8 mmol/L (4-12); Blood Urea Nitrogen 13 mg/dL (9-20); Calcium 8.8 mg/dL (8.4-10.2); Carbon Dioxide 28 mmol/L (22-30); Chloride 103 mmol/L (98-107); Estimated CRCL calculation 110 ml/min; Estimated Glomerular Filt Rate > 60; Glucose 170 mg/dL (65-110); Potassium 4.1 mmol/L (3.4-5.0); Sodium 139 mmol/L (137-145)
[2024-12-03] MEDS: metFORMIN HCL XR 500 MG TAB.SR.24H 1000 MG PO (08:59)
[2024-12-03 09:00] VITALS: BP 134/85; PULSE 97; O2SAT 95
[2024-12-03] MEDS: ASPIRIN 81 MG ENTERIC TABLET PO (09:00)
[2024-12-03] MEDS: EMPAGLIFLOZIN 25 MG TABLET BY MOUTH (09:00)
[2024-12-03] MEDS: FAMOTIDINE 20 MG TABLET PO (09:00)
[2024-12-03] MEDS: MELOXICAM 7.5 MG TABLET PO (09:00)
[2024-12-03] MEDS: lisinopriL 10 MG TABLET PO (09:00)
== END 2024-12-03 10:20 | disposition home or self-care (01) ==
LOC: ANHSURGERY 11:57 → ANH3MEDSUR 16:10
PROVIDERS: Physician Assistant Surgical; PCP Family Medicine; Visit Provider Orthopaedic Surgery
PROC: (CPT 27447; principal; 2024-12-02 12:00)
DX: M17.11 Unilateral primary osteoarthritis, right knee (principal); M25.761 Osteophyte, right knee; I10 Essential (primary) hypertension; E11.9 Type 2 diabetes mellitus without complications; E78.5 Hyperlipidemia, unspecified; E66.9 Obesity, unspecified; Z68.33 Body mass index [BMI] 33.0-33.9, adult; Z79.82 Long term (current) use of aspirin; Z79.84 Long term (current) use of oral hypoglycemic drugs; Z98.890 Other specified postprocedural states; Z82.49 Family history of ischemic heart disease and other diseases of the circulatory system
CPT/HCPCS: 27447; 36415; 73560; 80048; 82948; 85025; 85055; 86850; 86900; 86901; 97110; 97161; 97165; C1776; A9270; C1713; J0171; J0690; J1100; J1171; J1885; J2003; J2250; J2270; J2405; J2704; J2795; J3010; J7120; J7512

== ENCOUNTER 2025-06-03 14:04 | Outpatient (CLI) | payer MEDICARE, SELFPAY ==
--- NOTE | ~2025-06-03 | XR_ITS ---
Exam: X-ray hip right 2 views with AP pelvis TECHNIQUE: 3 images of the right hip were obtained. CLINICAL HISTORY: Pain in right hip. Comparisons: None. FINDINGS: Moderate to severe superolateral narrowing of the left hip joint. Mild narrowing of the right hip joint. No fracture. No dislocation. Bone mineralization is within normal limits. There is a 4.5 x 3.2 cm lucency in the right inferior acetabulum. IMPRESSION: 1.There is a 4.5 x 3.2 cm lucency in the right inferior acetabulum. Differential includes focal osteo penia, sequelae from degenerative change versus lytic bone lesion. An MRI with and without contrast i s recommended. 2. No fracture. No dislocation. 3. Mild degenerative change about the right hip. 4. Moderate to severe superolateral narrowing of the left hip joint. Reviewed, dictated and finalized at location A. IMPRESSION: 1.There is a 4.5 x 3.2 cm lucency in the right inferior acetabulum. Differentia l includes focal osteopenia, sequelae from degenerative change versus lytic bon e lesion. An MRI with and without contrast is recommended. 2. No fracture. No dislocation. 3. Mild degenerative change about the right hip. 4. Moderate to severe superolateral narrowing of the left hip joint.
== END 2025-06-03 14:05 | disposition home or self-care (01) ==
PROVIDERS: PCP Family Medicine; Visit Provider Orthopaedic Surgery
DX: M25.551 Pain in right hip (principal)
CPT/HCPCS: 73502

== ENCOUNTER 2025-08-22 13:51 | Outpatient (CLI) | payer MEDICARE, SELFPAY ==
--- NOTE | 2025-08-22 14:36 | ECG_ITS ---
Test Date: 2025-08-22 14:52:57 Measurements Intervals [place] Rate: 70 P: 26 MN: 173 QRS: -31 QRSD: 94 T: 16 QT: 381 QTc: 413 Interpretive Statements SINUS RHYTHM MISSING LEAD V6 LEFT AXIS DEVIATION LOW QRS VOLTAGE IN PRECORDIAL LEADS CANNOT R/O SEPTAL INFARCT, AGE INDETERMINATE CONSIDER INFERIOR INFARCT, AGE INDETERMINATE BASELINE ARTIFACT- I, II, III, AVR, AVL, AVF, V1-V3 ABNORMAL ECG Compared to ECG 08/27/2024 10:19:56 NO SIGNIFICANT CHANGE Electronically Signed On 08-22-2025 15:06:30 CDT by Eder Monterroso D.O.
[2025-08-22 15:05] LABS: Hematocrit 50.2 % (42.0-52.0); Hemoglobin 17.4 g/dL (14.0-18.0); Immature Granulocyte Percent A 0.4 % (0-0.5); Lymphocytes Absolute Auto 1.46 K/mm3 (0.9-3.2); Mean Corpuscular HGB Conc 34.7 g/dl (32-36); Mean Corpuscular Hemoglobin 30.9 pg (26-34); Mean Corpuscular Volume 89.0 fl (80-100); Nucleated Red Blood Cells Absolute Auto 0.000 K/mm3 (0.0-0.012); Nucleated Red Blood Cells Perc 0.0 % (0.0-0.2); Platelet Count Result 164 k/mm3 (150-375); Red Blood Count 5.64 M/mm3 (4.6-6.20); White Blood Count 5.2 K/mm3 (4.5-10.0)
[2025-08-22 15:14] LABS: Albumin Level 4.1 g/dL (3.5-5.1)
[2025-08-22 15:25] LABS: Anion Gap 11 mmol/L (4-12); Blood Urea Nitrogen 18 mg/dL (9-20); Calcium 9.1 mg/dL (8.4-10.2); Carbon Dioxide 24 mmol/L (22-30); Chloride 103 mmol/L (98-107); Estimated Glomerular Filt Rate > 60; Glucose 107 mg/dL (65-110); Potassium 4.2 mmol/L (3.4-5.0); Sodium 138 mmol/L (137-145)
[2025-08-22 16:23] LABS: MRSA (PCR) NOT DETECTED (NOT DETECTE)
== END 2025-08-22 13:52 | disposition home or self-care (01) ==
LOC: ANHSURGERY 13:55
PROVIDERS: Anesthesiology; PCP Family Medicine; Visit Provider Orthopaedic Surgery
DX: Z01.818 Encounter for other preprocedural examination (principal); M17.12 Unilateral primary osteoarthritis, left knee; E11.9 Type 2 diabetes mellitus without complications; R94.31 Abnormal electrocardiogram [ECG] [EKG]
CPT/HCPCS: 36415; 80048; 80307; 82040; 85025; 87641; 93005

== ENCOUNTER 2025-08-28 08:54 | Outpatient (CLI) | payer MEDICARE, SELFPAY ==
--- NOTE | 2025-08-28 09:12 | ECG_ITS ---
Test Date: 2025-08-28 09:24:54 Measurements Intervals [place] Rate: 89 P: 25 SD: 178 QRS: -34 QRSD: 95 T: 55 QT: 349 QTc: 426 Interpretive Statements SINUS RHYTHM LEFT AXIS DEVIATION [QRS AXIS < -30] LOW QRS VOLTAGE IN PRECORDIAL LEADS [QRS DEFLECTION < 1.0 mV IN CHEST LEADS] Compared to ECG 08/22/2025 14:52:57 Myocardial infarct finding no longer present Electronically Signed On 08-28-2025 11:28:49 CHILLING HOOD OPERATOR by Jhon Christina M.D.
--- OUTSIDE RECORDS SUMMARY | 2025-08-28 17:40 | XMS_ITS | Data Portability ---
Author Organization [place] [facility] [place] [employer], Main Office Address [address] [place] [address] Care Team Providers Care Security Systems Administrator Name Role Phone HODA CHOI Primary Care [...] valgus deformity of the right knee and zanh-ur-papw change with significant arthropathy. If for his right and left knees got iaqy-pg-dmvm change medially and he has got significant pain with any manipulation. Neurologically he is intact. Will try an injection this done with 20 mg Kenalog 4 cc 1% lidocaine. For prescription drug management will try prednisone taper. He will continue with exercises at home. Follow-up in a month. If no better he will need knee replacement surgery. [email or web address] Not available 02/21/2023 15:55:15 03/23/2023 03/23/2023 Patient [...] this point wants leave it alone discussed. [email or web address] Not available 03/23/2023 11:22:19 06/12/2023 06/12/2023 Patient [...] more pain in the less arthritic knee. [email or web address] Not available 06/12/2023 11:06:28 06/19/2023 06/19/2023 Patient [...] month after the surgery is performed discussed. [email or web address] Not available 06/19/2023 09:48:01 Plan of Treatment Reminders Order Date Submit Date Provider Last Modified By Organization Details Last Modified Time Details Appointments None recorded. Lab BMP, serum or plasma - Please fax results to [facility] 2022 023 [email or web address] In-Office Order, Internal Use Only DO Not Attach Compendium DO Not Attach Compendium, Do Not Delete/merge, [id number] 10:20:36 Referral None recorded. Procedures injection/a spiration joint/bursa (PROC) - in office procedure, administere d by provider 2022 023 [email or web address] In-Office Order, Internal Use Only DO Not Attach Compendium DO Not Attach Compendium, Do Not Delete/merge, [id number] 10:42:05 injection/a spiration joint/bursa (PROC) - in office procedure, administere d by provider 2022 023 [email or web address] In-Office Order, Internal Use Only DO Not Attach Compendium DO Not Attach Compendium, Do Not Delete/merge, [id number] 15:29:26 Surgeries None recorded. Imaging electrocard iogram - Please fax results to [phone] [facility] 2022 023 [email or web address] In-Office Order, Internal Use Only DO Not Attach Compendium DO Not Attach Compendium, Do Not Delete/merge, [id number] 11:50:44 MRI, knee, w/o contrast 2022 023 [email or web address] [facility], [address], [place], [address], 3 12:14:48 XR, knee 2022 023 dat 158 [facility] [place], [address], [place], [address], 3 15:55:04 Medication Orders Kenalog 10 mg/mL suspension for injection 2022 023 [facility]79, [address] [place], [place], [id number], 3 10:45:09 ropivacaine (PF) 5 mg/mL (0.5 %) injection solution 2022 023 [facility] [address] [facility], [address] [place], [place], [id number], 3 10:45:09 diclofenac sodium 75 mg tablet,marvin yed release 2022 023 [facility] #07811, [address] [place], [place], [id number], 3 11:07:40 Kenalog 10 mg/mL suspension for injection [email or web address] [facility]99464, [address] [place], [place], [id number], 3 15:48:56 ropivacaine (PF) 5 mg/mL (0.5 %) injection solution [address] [facility]43223, [address] [place], [place], [id number], 3 15:48:56 prednisone 10 mg tablets in a dose pack [address] [facility] #33932, [address] [place], [place], [id number], 3 15:48:56 Patient TargetsNo targets recorded. Patient InstructionsNo instructions recorded. Reason for Referral None Reported. Results Created Date Observation Date Name Description Value Unit Range Abnormal Flag Note LastModifiedBy Organization Detail LastModifiedTime 02/22/20 XR, knee No observ ation record ed. [email or web address] [facility] [place] [address], [place], [address], 02/21/2023 15:55:04 06/14/20 23 MRI knee lt wo [facility] [address] [address] Patien t Name: BLAKE SIMS Access ion #: [id number] Sex: M : 1959 Dictat ed By: Dea Padilla ing Physic herman: , Rachael ferrara Physic [...] tion compar ed to higher field streng MRI scanne rs. INTERP RETATI ON: Crucia [...] this exam due to techni que/fi eld ng . Bones: No eviden ce of acute [...] eal cyst. 1.4 cm cystic struct ure gold leaf gilder ior to the latera l femora l condyl e, appear s techni que 8 with the joint, likely gangli on cyst. Other: No other signif icant findin gs. Page 1 [facility] [place] [address] [place] [address] [phone] Patien t Name: BLAKE SIMS Access ion #: [id number] Sex: M : 1959 Dictat ed [...] 5. Likely gangli on cyst along the gold leaf gilder ior aspect of the latera l compar tment. 6. Additi onal findin gs as detail ed above. Electr onical ly Signed by: Dea soni at 2022 17:03: 38 PM Page [address] (Imaging) [address] [place], [address], 06/15/2023 07:41:43 Result Notes None recorded. Problems Name Problem SNOMED Code Status Onset Date Resolution Date Notes Provider Name and Address Organization Details Recorded Time Type 2 diabetes mellitus 92441079 Active 2018 Not Available [employer] 3 17:45:25 Pain of left knee joint 0336232856464 07 Active 2022 JOSE DE JESUS Moore, [facility] [employer] 3 15:07:35 Bilateral osteoarthr itis of knees 2192918798414 07 Active 2022 Linda Anderson MD [address] [facility], [facility] [address], [place], [address] , [place] [facility] [employer] [facility] 3 15:53:41 Tear of medial meniscus of knee 823408793 Active 2022 Linda Anderson MD [address] [facility], [place] [address], [place], [address] , [facility] [employer] [facility] [employer] [facility] 3 11:06:40 Problem Notes None recorded. Procedures Surgical History Date Name Laterality Status Provider Name and Address Organization Details Recorded Time 3 Ortho - Cortisone Injection completed Linda Anderson MD [address], [place] [address], [place], [address], [employer] [facility] 06/12/2023 11:05:12 3 Ortho - Cortisone Injection completed Linda Anderosn MD [address], [place] [address], [place], [address], [employer] [facility] [employer] [facility] 02/21/2023 15:53:03 5 Knee completed Saima Julian CNA [employer] [facility] [employer] [facility] 02/21/2023 15:07:08 Imaging Results None recorded. Procedure Notes None recorded. Medical Equipment None [...] suspension for injection in office 2022 active ND: 0003- 0494- 20 Not Available Not Available [...] %) injection solution in office 2022 active [facility] [phone] [phone] Not Available Not Available Not Available Farxiga 10 mg tablet TAKE 1 TABLET BY MOUTH DAILY active Not Available Not Available No t Available Vitals Date Recorded Body height Body mass index (BMI) Body weight Provider Name and Address Organization Details Last Updated DateTime 02/21/2023 180.34 cm 34.2 kg/m2 945903.13 g Saima Rosaskasey MAIL ROOM [employer] [facility] [employer] 02/21/2023 15:05:41 Date Recorded Body height Body mass index (BMI) Body weight Provider Name and Address Organization Details Last Updated DateTime 03/23/2023 180.34 cm 34.2 kg/m2 496679.13 g Saima Rosaskasey MAIL ROOM [employer] [facility] [employer] 03/23/2023 11:01:03 Date Recorded Body height Body mass index (BMI) Body weight Provider Name and Address Organization Details Last Updated DateTime 06/12/2023 180.34 cm 34.2 kg/m2 331857.13 g GURINDER Vick [employer] [employer] 06/12/2023 10:40:52 Date Recorded Body height Body mass index (BMI) Body weight Provider Name and Address Organization Details Last Updated DateTime 06/19/2023 180.34 cm 34.2 kg/m2 587474.13 g Saima Iesha MAIL ROOM [employer] 06/19/2023 09:30:28 Social History None recorded. Functional Status Question Answer Note LastModified by Organizat ion Details LastModified Time What is your level of alcohol consumption? Occasional [email or web address] Information not available 02/21/2023 Mental Status None recorded. Family History Relationship [...] Recorded Time Tdap 07/18/2019 completed Not Available [facility] 12/21/2022 17:47:36 Past Encounters Encounter ID Performer Location Encounter Start Date Encounter Closed Date Diagnosis/Indication Diagnosis SNOMED-CT Code Diagnosis ICD10 Code Diagnosis IMO Codes Diagnosis Note [id number] Linda Anderson MD [facility] [place] [address] [place] [address] 02/21/2023 14:54:42 02/21/2023 15:48:18 Pain of left knee joint 5118445572 14347 M25.562 Bilateral osteoarthritis of knees 8197531049 97693 M17.0 [id number] Linda Anderson MD [facility] [place] [address] [place] [address] 03/23/2023 10:54:08 03/23/2023 11:24:20 Pain of left knee joint 3491659582 80965 M25.562 Bilateral osteoarthritis of knees 7439266296 55716 M17.0 [id number] Linda Anderson MD [facility] [place] [address] [place] [address] 06/12/2023 10:37:18 06/12/2023 11:09:17 Pain of left knee joint 3055237911 04571 M25.562 Bilateral osteoarthritis of knees 4016721126 06156 M17.0 Tear of me dial meniscus of knee 866643616 S83.242A [id number] Linda Anderson MD [facility] [place] [address] [place] [address] 06/19/2023 09:28:21 06/19/2023 10:06:58 Bilateral osteoarthritis of knees 1852428951 90535 M17.0 Tear of me dial meniscus of knee 061764414 S83.242A Pain of le ft knee joint 3038515848 99392 M25.562 Pre-surger y evaluation 973930302 Z01.818 Health Concerns Section Related Observation LastModified by Organization Detai ls LastModified Time None Recorded Concern Status LastModified by Organization Details LastModified Time None Recorded Advance Directives Directive None Recorded Payers Insurance Date Sequence Insurance Name Policy Number Policy Vargas Covered Member ID Vargas Member ID Guarantor Name 06/21/2023 1 [facility] (MEDICARE REPLACEMENT/A DVANTAGE - HMO) [id number] Vij[address] [place] [id number] Peyman Sims 06/08/2023 1 [place] Peyman Rendonint [id number] Peyman Sims 02/20/2023 1 [facility] [id number] M[place] [id number] Peyman Sims 06/08/2023 1 [id number] [id number] Vijay Rendonint [id number] Peyman Sims Notes Date Note Type Note [...] right. Linda Anderson MD [address] [facility], [place], [address], [place] 02/21/2023 15:56:04 03/23/2023 text/html Patient presents knee [...] more than his right. Linda Anderson MD [address], [place], [address], [place] 03/23/2023 11:22:37 06/12/2023 text/html Patient presents knee [...] Linda Anderson MD [address], [place], [address], [place] [facility] 06/12/2023 11:07:36 06/19/2023 text/html Patient presents knee [...] Linda Anderson MD [address], [place], [address], [employer] 06/19/2023 09:49:18
== END 2025-08-28 08:55 | disposition home or self-care (01) ==
PROVIDERS: PCP Family Medicine; Visit Provider Orthopaedic Surgery
DX: I10 Essential (primary) hypertension (principal); R94.31 Abnormal electrocardiogram [ECG] [EKG]
CPT/HCPCS: 93005

== ENCOUNTER 2025-09-10 07:41 | Outpatient (CLI) | payer MEDICARE, SELFPAY ==
--- NOTE | ~2025-09-10 | NM_ITS ---
EXAMINATION: NM stress w perf spect multi DATE: 09/10/2025 11:03 INDICATION: Abnormal EKG TECHNIQUE: Rest images were obtained following intravenous administration of 10.9 mCi Tc99m tetrofosmin (BioNitrogenview). The patient performed an exercise activity. At peak exercise, 32.6 mCi Tc99m tetrofosmin (Myoview) was administered intravenously, and stress images were obtained, initially in the supine position with repeat post stress images obtained in the prone position. Data was reconstructed into short axis and horizontal and vertical long axis SPECT images. Gated SPECT images were also obtained. COMPARISON: None. FINDINGS: There is likely diaphragmatic attenuation artifact along the inferior wall on both the rest and stress images which normalizes on the post stress imaging obtained in the prone position. Normal left ventricular perfusion without definite evidence perfusion abnormality on the poststress images obtained in the prone position to suggest ischemia or infarction. There is normal left ventricular chamber size, wall motion and ejection fraction. Left ventricular ejection fraction measures 68%. IMPRESSION: 1. Normal myocardial perfusion during stress. 2. Left ventricular ejection fraction measuring 68%. Reviewed, dictated and finalized at location A. FABRICATING MACHINE TENDER
--- NOTE | 2025-09-10 08:29 | EST_ITS ---
Patient Info Name: Peyman Sims Age: 65 years : 1960 Gender: Male Ht: 72 in Wt: 224 lbs BSA: 2.30 m2 HR: 74 bpm BP: 147 / 87 mmHg Exam Date: 09/10/2025 8:29 AM Patient Status: O Admit Date: 09/10/2025 Exam Type: CA stress test treadmill w NM A nuclear stress test was performed. Staff Referring Physician: Radu Ramos MD Attending Provider: Radu Ramos MD Exercise Technologist: Alexandria Richard Exercise Physician: Eder Monterroso DO Summary 1. 1. Negative Osito exercise stress test for ischemic ST changes by ECG criteria. 2. 2. Good functional capacity, achieving 8 METs of workload. 3. 3. Baseline hypertension with hypertensive response to exercise. 4. 4. Appropriate HR response to exercise. 5. 5. Appropriate HR recovery at 1 minute post exercise. 6. 6. Nuclear scan to follow and will be reported separately. Please correlate with it. 7. 6. Patient informed of the above results. Protocol: Osito Stress ECG Details Stage: REST Duration (min): 1 min : 58 sec Speed (mph): 0.0 Grade (%): 0 HR (bpm): 75 SBP (mmHg): 147 DBP (mmHg): 87 METS: --- Stage: REST Duration (min): 3 min : 49 sec Speed (mph): 0.0 Grade (%): 0 HR (bpm): 79 SBP (mmHg): 147 DBP (mmHg): 87 METS: --- Stage: STAGE 1 Duration (min): 1 min : 0 sec Speed (mph): 1.7 Grade (%): 10 HR (bpm): 99 SBP (mmHg): 147 DBP (mmHg): 87 METS: --- Stage: STAGE 1 Duration (min): 2 min : 0 sec Speed (mph): 1.7 Grade (%): 10 HR (bpm): 107 SBP (mmHg): 147 DBP (mmHg): 87 METS: --- Stage: STAGE 1 Duration (min): 3 min : 0 sec Speed (mph): 1.7 Grade (%): 10 HR (bpm): 118 SBP (mmHg): 209 DBP (mmHg): 102 METS: --- Stage: STAGE 2 Duration (min): 1 min : 0 sec Speed (mph): 2.5 Grade (%): 12 HR (bpm): 122 SBP (mmHg): 209 DBP (mmHg): 102 METS: --- Stage: STAGE 2 Duration (min): 2 min : 0 sec Speed (mph): 2.5 Grade (%): 12 HR (bpm): 128 SBP (mmHg): 201 DBP (mmHg): 94 METS: --- Stage: STAGE 2 Duration (min): 3 min : 0 sec Speed (mph): 2.5 Grade (%): 12 HR (bpm): 130 SBP (mmHg): 201 DBP (mmHg): 94 METS: --- Stage: STAGE 3 Duration (min): 0 min : 30 sec Speed (mph): 3.4 Grade (%): 14 HR (bpm): 134 SBP (mmHg): 201 DBP (mmHg): 94 METS: --- Stage: RECOVERY Duration (min): 0 min : 29 sec Speed (mph): 0.0 Grade (%): 0 HR (bpm): 129 SBP (mmHg): 203 DBP (mmHg): 94 METS: --- Stage: RECOVERY Duration (min): 1 min : 29 sec Speed (mph): 0.0 Grade (%): 0 HR (bpm): 106 SBP (mmHg): 203 DBP (mmHg): 94 METS: --- Stage: RECOVERY Duration (min): 2 min : 29 sec Speed (mph): 0.0 Grade (%): 0 HR (bpm): 99 SBP (mmHg): 203 DBP (mmHg): 94 METS: --- Stage: RECOVERY Duration (min): 3 min : 29 sec Speed (mph): 0.0 Grade (%): 0 HR (bpm): 95 SBP (mmHg): 171 DBP (mmHg): 100 METS: --- Stage: RECOVERY Duration (min): 4 min : 29 sec Speed (mph): 0.0 Grade (%): 0 HR (bpm): 91 SBP (mmHg): 171 DBP (mmHg): 100 METS: --- Stage: RECOVERY Duration (min): 5 min : 29 sec Speed (mph): 0.0 Grade (%): 0 HR (bpm): 92 SBP (mmHg): 159 DBP (mmHg): 100 METS: --- Stage: RECOVERY Duration (min): 6 min : 29 sec Speed (mph): 0.0 Grade (%): 0 HR (bpm): 89 SBP (mmHg): 159 DBP (mmHg): 100 METS: --- Stage: RECOVERY Duration (min): 7 min : 6 sec Speed (mph): 0.0 Grade (%): 0 HR (bpm): 92 SBP (mmHg): 150 DBP (mmHg): 99 METS: --- Rest HR: 79 bpm Peak HR: 135 bpm Rest Sys BP: 147 mmHg Peak Sys BP: 209 mmHg Max Pred HR: 153 bpm % Max Pred HR: 88 % Target HR: 130 bpm Max RPP: 28,215 bpm*mmHg Valerio Score: 3 BP Response: Patient exhibited a hypertensive response with stress Termination Reason: Reached target heart rate or workload Cardiac Symptoms: Shortness of breath Max ST Seg Deviation: 0.80 mm Total Time: 6 min : 30 sec Rest Woods BP: 87 mmHg Peak Woods BP: 102 mmHg Angina Score: None Total METS: 8.0 Resting ECG Sinus rhythm. Stress ECG No ST changes. Arrhythmias None. Report Signatures
== END 2025-09-10 07:42 | disposition home or self-care (01) ==
PROVIDERS: PCP Family Medicine; Visit Provider Family Medicine
DX: R94.31 Abnormal electrocardiogram [ECG] [EKG] (principal)
CPT/HCPCS: 78452; 93017; A9502

== ENCOUNTER 2025-09-11 01:05 | Day surgery (SDC) | payer MEDICARE, SELFPAY ==
[2025-08-22 14:08] VITALS: BP 135/79; PULSE 80; RESP 16; TEMP 36.8; O2SAT 96; BMI 31.5
--- NOTE | 2025-08-22 14:22 | PC.NURSE ---
[facility] has started construction of its new state of the art ER which will open Spring 2026. With this, we anticipate parking may be a challenge for some our surgical patients and families. Parking spaces are limited but are available for all Surgical, obstetrics, and ER patients sharing this lot. If you arrive and find you are having a hard time finding a parking space, please note that we understand the challenges, please drive around the hospital and park near Hospital Entrance 1. When you enter this entrance, you can ask a volunteer to direct or take you back to the surgical waiting area to check in. We appreciate everyone?s understanding of these expected challenges while we build for your future. Report to the Outpatient Waiting Room, entrance under the green pavilion located [address], at time __08:00am on date _09/11/25 . Planned Procedure Time: _10:00am .? Time changes happen often and if your time is changed the preop area will call you the afternoon before. - You and your visitor will be asked to self-screen and do not enter if you have any COVID symptoms. Please call surgeon if you need to reschedule. - A mask is optional within the hospital at this time. Patients may have clear liquids (water, carbonated beverages, clear teas, apple juice) until 3 hours prior to surgery with a maximum of 20 ounces. - No food from midnight until time of surgery and no smoking, or chewing tobacco (or any form of nicotine). No chewing gum, candy or mints. (0700am) Take only the following medications with a SIP of water on the morning of surgery: ____NONE DO NOT STOP ANY OF YOUR OTHER PRESCRIPTION MEDICATIONS PRIOR TO SURGERY EXCEPT THE FOLLOWING Hold all vitamins and supplements for 3 days per anesthesiologist. Date of last dose 09/07/25 Medications to discontinue per physician HOLD MELOXICAM/ASPIRIN/NSAIDS for [address] Mart Date to take last dose____09/03/25 Please no make-up, nail tajik, hairspray, perfume, deodorant, or body powder the day of surgery.? No jewelry (including any body piercings) or valuables the day of surgery, leave them at home.? Please take a shower or bath the night before, or the morning of, surgery with an antibacterial soap.? Wear comfortable, loose fitting clothing.? - Jewelry must be removed prior to entering the operating room.? Rings and piercings that are not removed may be cut off. - The hospital will not accept responsibility for valuables.? - Please leave all valuables, including medications, at home the day of surgery. If you are going home after surgery, a licensed chuck wagon driver must drive you home.? - NO public transportation without another adult if you receive anesthesia. - We recommend that an adult stay with you for 24 hours following discharge. - We also recommend that you do not drive, make important decision, drink alcoholic beverages, or take any drugs that were not prescribed by your health care provider for at least 24 hours after your discharge time. Follow any additional instructions given to you from your surgeon. Telephone instructions given to __Patient and asked if any additional questions and then verbalized understanding. Patient advised to call surgeon office or pre surgery nurse liaison [phone] if any additional questions.
[2025-09-11] VITALS (11 sets, daily range): BP systolic 112–150; BP diastolic 53–87; PULSE 68–80; RESP 14–16; TEMP 36.5–36.8; O2SAT 94–99
--- NOTE | ~2025-09-11 | XR_ITS ---
Examination: [id number] Clinical History: POST OP LEFT TKA Comparison: 08/11/2025 Technique: 2 views left knee Findings/impression: 1. Expected appearance and findings after arthroplasty. 2. No periprosthetic fracture or other complication noted. Reviewed, dictated and finalized at location [facility]
--- NOTE | 2025-09-11 07:20 | WPDHPUPDATE1 ---
History and Physical Update Update Date/Time: 09/11/25 07:20 History and Physical has been reviewed, including an updated exam of the patient. There are NO changes in the patient's condition. Risks, benefits, and alternatives have been discussed and questions answered. Patient agrees to proceed with procedure.
[2025-09-11] MEDS: ACETAMINOPHEN 500 MG TABLET 1000 MG PO (08:30)
[2025-09-11] MEDS: LACTATED RINGERS 1,000 ML 30 ML IV CONT ×2 (08:45→13:04)
[2025-09-11] MEDS: TRANEXAMIC ACID 1,000MG/ISO100 1,000 MG/100 ML BAG 200 MG IVPB (09:32)
--- NOTE | 2025-09-11 09:50 | PM.IMHP ---
H&P: [facility] History of Present Illness Date/Time: 09/11/25 09:50 Chief Complaint: Left knee pain Narrative: Pleasant active male complains of chronic left knee pain. He has difficulty with prolonged standing and walking. He has significant pain at night that wakes him from sleep. He has had extensive conservative treatment with therapy and injections over the years. He wears a brace. Good early result on the contralateral total knee arthroplasty. He denies significant groin pain. Review of Systems Review of Systems: All systems reviewed & are unremarkable except as noted in HPI and below PMFSH Past Medical History Medical History Pure hypercholesterolemia, unspecified Essential (primary) hypertension Obesity Type 2 diabetes mellitus without complications Surgical History Surgical History Status post total right knee replacement (~12/02/24) Medacta H/O knee surgery R, cartilage removed 1974 History of inguinal herniorrhaphy 1965 Family History Family History Father Hypertension Diabetes mellitus Hyperlipidemia Mother Cerebrovascular accident Grandparent COPD (chronic obstructive pulmonary disease) Social History Social History Smoking status: Never smoker Second hand tobacco smoke exposure: Yes Additional smoking assessment comments: DENIES ANY FORM OF TOBACCO USE Alcohol intake: current Alcohol use details: 1 per month Substance use: never Substance use type: does not use Do You Feel Safe in your Home?: Yes Lack of Transportation: No Lack of Food: Never True Current Housing: I Have Housing Concerned About Future Housing: No Difficulty Paying Gas/Electric Bills: No Difficulty Paying for Meds: No Currently Unemployed: No Education: High School Diploma/GED Difficulty w/ Childcare or Family Care: No Living arrangements: with family Additional living arrangements comments: Occupation/Education: occupation Gender identity (if verbalized by the patient): Male Sexual Orientation (if Verbalized by the Patient): Straight or Heterosexual Spiritual care concerns: No Meds Home Medications and Allergies Home Medications ?Medication ?Instructions ?Recorded ?Confirmed ?Type vitamin B12 500 mcg-folic acid 400 1 tablet PO DAILY 11/22/19 08/22/25 History mcg tablet omega 7-nqj-fdr-fish oil 100 1 cap PO DAILY 11/27/23 08/22/25 History mg-160 mg-1,000 mg capsule (Fish Oil) lisinopril 10 mg tablet 10 mg PO DAILY #100 tabs 02/10/25 08/22/25 Rx dapagliflozin propanediol 10 mg 10 mg PO DAILY #90 tabs 06/08/25 08/22/25 Rx tablet (Farxiga) tadalafil 20 mg tablet (Cialis) 20 mg PO DAILY PRN sexual activity 07/06/25 08/22/25 Rx #10 tabs metformin 500 mg tablet,extended 1,000 mg (2 x 500 mg) PO DAILY 90 07/08/25 08/22/25 Rx release 24 hr days #180 tabs atorvastatin 40 mg tablet 40 mg PO HS #90 tabs 07/18/25 08/22/25 Rx blood sugar diagnostic (FreeStyle #50 ea 08/18/25 08/22/25 Rx Precision [place] Strips) meloxicam 15 mg tablet See Rx Instructions .Route 08/21/25 08/22/25 Rx .COMPLEX #30 tabs aspirin 81 mg tablet,delayed 81 mg PO DAILY 08/22/25 08/22/25 History release berberine chloride 500 mg-seaweed 2 cap PO DAILY 08/22/25 08/22/25 History 250 mg-chromium gly 7.5 mcg capsule aspirin 81 mg tablet,delayed 81 mg PO BID 14 days #28 tabs 09/11/25 Rx release oxycodone-acetaminophen 5 mg-325 1 - 2 tablet PO Q4-6H PRN pain #30 09/11/25 Rx mg tablet tabs prednisone 5 mg tablet 5 mg PO DAILY 3 weeks #21 tabs 09/11/25 Rx Allergies Allergy/AdvReac Type Severity Reaction Status Date / Time No Known Allergies Allergy Unknown Verified 09/11/25 08:49 Vital Signs Vital Signs - 24 hr 09/11/25 08:10 Temperature 36.5 C Pulse Rate 74 Respiratory Rate 16 Blood Pressure 142/83 H Pulse Oximetry 99 Oxygen Delivery Room Air Exam Narrative: Healthy 64 y/o male. No distress. Shows good insight. Slight limp with moderate varus deformity. Mild effusion. Mild synovitis. Range of motion 0 to 130? on the left. Neurovascular intact. No skin rash or lesion. No edema or varicosities. Diagnostics Radiographs 08/11/25 show severe left knee arthritis with varus disease with grade 4 changes medially. Oblique sauk-[place]attle joint line. Hip films show mild to moderate bilateral joint space narrowing and osteophyte formation. Assessment and Plan Assessment and plan (1) Left knee DJD: Qualifiers: Osteoarthritis type: primary Qualified Code(s): M17.12 - Unilateral primary osteoarthritis, left knee Code(s): M17.12 - Unilateral primary osteoarthritis, left knee Status: Acute Assessment and Plan: Severe persistent left knee arthritis. Risks, benefits, and alternatives reviewed. His hip arthritis is a concern although appears to be asymptomatic. He understands that his hips may cause problems leading to surgery, or be a cause of referred knee pain. Plan for the Medacta kinematic alignment. Proceed with left total knee arthroplasty. Pain medication: Percocet, Meloxicam, Prednisone DVT Prophylaxis: ASA 81 mg BID, short frequent walks, compression socks.
--- NOTE | 2025-09-11 10:03 | WPDANESEPPF ---
Anes - Initial Pre Proc Eval Procedure: Operation Date: 09/11/25 10:00 Proposed Procedures p Left Total Knee Arthroplasty - Shravan Mart MD Date/Time: 09/11/25 10:03 Surgeon: Shravan Mart MD Pre Op Diagnosis: Primary OA left knee Pre Op Diagnosis: Prim O A Left Knee Patient Data Age: 65 Gender: M Height: 1.83 m Weight: 105.4 kg Last Vital Signs Temp 36.5 C 09/11/25 08:10 Pulse 74 09/11/25 08:10 Resp 16 09/11/25 08:10 BP 142/83 H 09/11/25 08:10 Pulse Ox 99 09/11/25 08:10 O2 Del Method Room Air 09/11/25 08:10 Allergies Allergy/AdvReac Type Severity Reaction Status Date / Time No Known Allergies Allergy Unknown Verified 09/11/25 08:49 Home Medications ?Medication ?Instructions ?Recorded ?Confirmed ?Type vitamin B12 500 mcg-folic acid 400 1 tablet PO DAILY 11/22/19 08/22/25 History mcg tablet omega 4-jkd-rpx-fish oil 100 1 cap PO DAILY 11/27/23 08/22/25 History mg-160 mg-1,000 mg capsule (Fish Oil) lisinopril 10 mg tablet 10 mg PO DAILY #100 tabs 02/10/25 08/22/25 Rx dapagliflozin propanediol 10 mg 10 mg PO DAILY #90 tabs 06/08/25 08/22/25 Rx tablet (Farxiga) tadalafil 20 mg tablet (Cialis) 20 mg PO DAILY PRN sexual activity 07/06/25 08/22/25 Rx #10 tabs metformin 500 mg tablet,extended 1,000 mg (2 x 500 mg) PO DAILY 90 07/08/25 08/22/25 Rx release 24 hr days #180 tabs atorvastatin 40 mg tablet 40 mg PO HS #90 tabs 07/18/25 08/22/25 Rx blood sugar diagnostic (FreeStyle #50 ea 08/18/25 08/22/25 Rx Precision [place] Strips) meloxicam 15 mg tablet See Rx Instructions .Route 08/21/25 08/22/25 Rx .COMPLEX #30 tabs aspirin 81 mg tablet,delayed 81 mg PO DAILY 08/22/25 08/22/25 History release berberine chloride 500 mg-seaweed 2 cap PO DAILY 08/22/25 08/22/25 History 250 mg-chromium gly 7.5 mcg capsule aspirin 81 mg tablet,delayed 81 mg PO BID 14 days #28 tabs 09/11/25 Rx release oxycodone-acetaminophen 5 mg-325 1 - 2 tablet PO Q4-6H PRN pain #30 09/11/25 Rx mg tablet tabs prednisone 5 mg tablet 5 mg PO DAILY 3 weeks #21 tabs 09/11/25 Rx Laboratory Tests 09/11/25 09/11/25 08:34 08:44 POC Capillary Glucose 143 H mg/dl (65-105) Blood Type O Negative Antibody Screen Negative ECG: SR 89 Patient hx anesthesia problems: none Family hx anesthesia problems: none Results Review: All pre-operative results and documents have been reviewed as part of the pre-operative evaluation. [facility] Past Medical History Medical History Pure hypercholesterolemia, unspecified Essential (primary) hypertension Obesity Type 2 diabetes mellitus without complications Surgical History Surgical History Status post total right knee replacement (~12/02/24) Medacta H/O knee surgery R, cartilage removed 1974 History of inguinal herniorrhaphy 1965 Family History Family History Father Hypertension Diabetes mellitus Hyperlipidemia Mother Cerebrovascular accident Grandparent COPD (chronic obstructive pulmonary disease) Social History Social History Smoking status: Never smoker Second hand tobacco smoke exposure: Yes Additional smoking assessment comments: DENIES ANY FORM OF TOBACCO USE Alcohol intake: current Alcohol use details: 1 per month Substance use: never Substance use type: does not use Do You Feel Safe in your Home?: Yes Lack of Transportation: No Lack of Food: Never True Current Housing: I Have Housing Concerned About Future Housing: No Difficulty Paying Gas/Electric Bills: No Difficulty Paying for Meds: No Currently Unemployed: No Education: High School Diploma/GED Difficulty w/ Childcare or Family Care: No Living arrangements: with family Additional living arrangements comments: Occupation/Education: occupation Gender identity (if verbalized by the patient): Male Sexual Orientation (if Verbalized by the Patient): Straight or Heterosexual Spiritual care concerns: No Anes - Eval Final PreProcedure Day of Procedure 09/11/25 10:03 Patient weight: obese Heart: regular rate and rhythm Lungs: normal air movement Airway: Mallampati scale class II Neurological: alert and oriented Last oral intake: >/= 8 hours ASA classification: II Emergent: no Anesthetic plan: proceed Anesthesia type and monitoring: general LMA and standard monitoring Results Review: All pre-operative results and documents have been reviewed as part of the pre-operative evaluation. Informed Consent: The patient's anesthetic plan and its attendant risks and benefits were discussed with the patient/family/POA. Questions were solicited and answers provided to the satisfaction of the patient/family/POA.
[2025-09-11] MEDS: ceFAZolin 2 GM in SODIUM CHLORIDE 0.9% IV 50 ML 100 ML IVPB (10:11)
[2025-09-11] MEDS: SODIUM CHLORIDE 0.9% IV 37.7 ML, MORPHINE SULFATE INJ (*CRX) 2 MG, ROPivacaine HCL 1% 2... INFILTRATE (10:44)
[2025-09-11] MEDS: TRANEXAMIC ACID 1,000 MG/10 ML AMPUL 1000 MG IV PUSH (12:27)
--- NOTE | 2025-09-11 13:28 | W.PM.PROC2 ---
Procedure Note - Detailed Date of Procedure 09/11/25 Pre-op Diagnosis Left knee degenerative arthritis. Post-op Diagnosis Same Procedure Performed Calipered, kinematically aligned total knee replacement left knee. Surgeon Shravan Mart MD Applications Engineer Manufacturing Miriam Collier PA-C Anesthesia General Findings According to the calipered kinematic alignment principles, the knee was balanced by the following verification checks incorporating 6 caliper measurements, using an insert goniometer to select the insert thickness, and adjusting the tibial resection following the kinematic alignment algorithm (see figure 160.10 published in [employer] chapter on kinematic alignment total knee arthroplasty.) The steps verified the femoral and tibial components were kinematically aligned coincident to the patient's pre arthritic joint lines, which closely restored the cowlitz tibial compartment forces and ligament laxities without ligament release. The [email or web address] TelcareriKA knee, designed specifically for kinematic alignment, fit optimally. Severe disease noted. PCL partially released. 2 degree tibia slope recut performed. The record of verification checks were documented and scanned into the chart. Distal Femoral Resection: Distal Medial 6 mm(cartilage worn), Distal Lateral 8 mm Target thickness of 8mm Unworn, 6mm Worn (No Cartilage). Posterior Femoral Resection: Posterior Medial 5 mm(cartilage worn), Posterior Lateral 7 mm. Target thickness of 7mm Unworn, 5mm Worn (No Cartilage). Description of Procedure General anesthesia was administered. A well-padded tourniquet was placed high on the thigh. The limb was prepped and draped in the usual sterile fashion. The limb was exsanguinated and the tourniquet inflated to 300 mmHgduring exposure and cementation. A longitudinal incision was created over the midline of the knee. Sharp dissection was taken through subcutaneous tissues. Electrocautery was used for hemostasis. A trivector approach to the knee joint was performed. The ACL, anterior horns of the menisci, and fat pad were excised, and a subperiosteal dissection was carried along the posterior medial border of the tibia. Starting midway between the top of the notch in the anterior femoral cortex, I drilled a 9 mm diameter hole parallel to the anterior cortex to minimize flexion of the femoral component and promote patella tracking. I verified the existence of a 5-10 mm bone bridge between the posterior aspect of the hole and the anterior limit of the intercondylar notch. An intraosseous positioning carlos alberto was inserted 10 cm into the femur perpendicular to the distal joint line and parallel to the anterior cortex. I used a distal femoral referencing guide that compensated 2 mm when the cartilage was worn on the distal medial femoral condyle, and 2 mm when the cartilage was worn on the distal lateral femoral condyle. The basis for setting the distal and posterior femoral resection guide is knowing that the varus and valgus grade II to IV Kellegren-Lenny osteoarthritic knees have negligible bone wear at 0? and 90? and that the mean full-thickness cartilage wear approximates 2 mm. I measured the thickness of distal femoral resections with a caliper to +/- 0.5 mm. The thickness of each resection was adjusted to match the thickness of the respective condyle of the femoral component within 0.5 mm of target after compensating for cartilage wear and kerf. When the distal resection was 1-2 mm too thin, a recut guide was used to adjust the cut. When the distal resection was too thick, a 1 or 2 mm thick washer was fixed to the back of the 4-in-1 chamfer block to shirin a corrective gap between the femoral component and distal femur. I set posterior femoral referencing guide at 0? orientation to position the pin holes for the 4 in 1 chamfer block. The halima wing measured the width of the distal femoral resection and selected the size of the 4 in 1 chamfer block and femoral component. The AP sizer confirmed the size. I measured the thickness of the posterior femoral resections with a caliper before making the anterior and chamfer cuts. I adjusted the thicknesses of each resection to match the thickness of the respective condyle of the femoral component within +/-0.5 mm after compensating for cartilage wear and curve. When a posterior resection femoral resection was 1-2 mm too thick or thin a corrective correction was made by shifting or rotating the 4 in 1 chamfer block as needed. The chamfer block was secured in the correct position with compression screws. The anterior and chamfer femoral resections were made. These caliper measurements and corrections verified that the femoral component was set coincident with the patient's pre-arthritic distal and posterior femoral joint lines. I removed all the medial and lateral femoral and tibial osteophytes to restore the pre arthritic length of the medial and lateral collateral ligaments. I ailin AP lines along the major axis of the lateral tibial plateau in between the tibial spines which identified the flexion extension plane of the knee. A conventional extramedullary tibial resection guide was applied to the ankle. An halima wing was placed medially in the saw slot. The varus valgus angle of the tibial resection guide was adjusted until the guide paralleled the proximal tibial articular surface after compensating for cartilage and bone wear. The slope of flexion extension angle of the tibial resection guide was adjusted until the halima wing paralleled the slope of the medial tibia after compensating for wear. The AP axis of the tibial resection guide was adjusted parallel to the two lines. The proximal tibia was resected, partially releasing the insertion of the posterior cruciate ligament. The thickness of the medial and lateral lateral tibial condyle was measured at the base of the tibial spines. I visually verified the slope of the medial border of the resection was parallel to the patient's pre arthritic slope after compensating for cartilage and bone wear. I removed the remnants of the posterior horns of the menisci and posterior osteophytes and cauterized the inferior lateral genicular vessels. The Aquamantys bipolar device was also used to for additional hemostasis. When the knee had a preoperative flexion contracture of 20? or more I teased the capsule off the posterior femur with a curved 3 quarter-inch osteotome. I administered the posterior femoral periosteal injection by delivering 10 cc using a 20 gauge spinal needle at the most medial and 10 cc at the most lateral femoral spur surface which reduced the risk of injury to the posterior neurovascular structures. I followed 6 options in a decision tree to fine tune the varus valgus and posterior slope orientation of the tibial component to restore the patient's pre arthritic tibial joint line and limb alignment. First, I adjusted the varus-valgus orientation of the proximal tibia resection working in 1 degree to 2 degree increments until there was negligible medial and lateral lift off of the distal femoral and proximal tibial resection from the spacer block during a varus valgus laxity assessment in extension. I selected the largest anatomic shape trial tibial base plate that fit within the cortical boundary of the proximal tibial resection. The base plate was best fit parallel to the cortical boundary which set the Internal-external orientation of the anterior to posterior and medial to lateral positions. The best fit method set the AP axis of the tibial base plate and insert parallel to the flexion extension plane of the pre arthritic knee. I pinned the trial tibial base plate, prepared the cruciate slot, and fixed the base plate to the tibia with the cruciate stem. I inserted the trial femoral component. The knee was placed in full extension. Varus valgus laxity is of the knee with trial components were assessed. When asymmetric laxity was observed a 1-2 degree varus or valgus recut guide was used to fine tune the tibial resection until the laxity was 1 degree or less in full extension like the cowlitz knee. The following steps determined the optimal insert thickness within +/-1 mm. First I inserted an insert goniometer that matched the thickness of the spacer block. I reduced the patella and then with the knee in maximum extension, I verified the knee hyperextended a few degrees and had negligible varus valgus laxity, like the pre arthritic knee. Next, I measured the external tibial orientation which was the angle the insert goniometer intersected the sagittal line on the medial condyle of the femoral trial component. Then with the knee in 15-30 degrees flexion I verified a 3-4 mm gap in the lateral compartment and no gap in the medial compartment during a 2nd varus valgus laxity test. Next, I placed the knee in 90? of flexion and the foot resting on the operating table and measured the internal tibial orientation. I repeated the steps until I identified the insert thickness that provided the highest external tibia orientation in extension and the highest internal tibial orientation at 90? flexion without anterior lift-off of the insert from the tibial base plate. The insert with this thickness was implanted. I applied a posterior drawer test with the tibia distracted by gravity and verified no posterior subluxation of the tibia relative to the femur. The thickness of the cowlitz patella was measured with a caliper. The lateral patellar facet was resected using the oscillating saw. The patella remained centered on the trochlea and tracked well throughout the entire arc of flexion and extension. I used pulse lavage to clean the bony surfaces of debris and dried bone. I cemented the tibial, femoral, and patellar components using 1 bag of methylmethacrylate with Gentamycin, then rechecked the stability at full extension, 15-30 degrees, and 90? flexion and verified mandaeism of the entire arc of motion of the knee. The circulating nurse confirmed the sponge and needle counts were correct. I used pulse lavage to rinse the joint and wound. The extensor mechanism was closed with interrupted #1 Vicryl suture and #1 running Stratafix suture. The subcutaneous layer was closed with interrupted #1 Vicryl suture followed by 2-0 Stratafix and 3-0 Stratafix. Steri-Strips placed on the skin. Silver impregnated occlusive dressing applied to the wound. A light gauze wrap and Nathaniel bandage were placed. The patient was transferred to the recovery room in stable condition. There were no complications. Physician economic research assistant, Miriam Collier PA-C, required for surgery; including patient positioning, draping, tissue retraction, maintaining instrument position, cement removal, wound closure, and dressing placement. Implants Medacta K spheriKA Femoral component SpheriKA size 5, tibial component size 5, vitamin-E flex insert, thickness 12mm. Estimated Blood Loss 300 Drains No Pathology None sent Complications No immediate complications Condition Stable Disposition PACU [facility] Billing Surgery - Charge Forward: Surgery Billing
[2025-09-11] MEDS: ONDANSETRON INJ 4 MG/2 ML VIAL IV PUSH (14:18)
[2025-09-11] MEDS: oxyCODONE HCL (*CRX) 5 MG TAB IR PO (15:01)
== END 2025-09-11 16:00 | disposition home or self-care (01) ==
PROVIDERS: PCP Family Medicine; Visit Provider Orthopaedic Surgery
PROC: (CPT 27447; principal; 2025-09-11 10:00)
DX: M17.12 Unilateral primary osteoarthritis, left knee (principal); M25.762 Osteophyte, left knee; E78.00 Pure hypercholesterolemia, unspecified; I10 Essential (primary) hypertension; E11.9 Type 2 diabetes mellitus without complications; E66.9 Obesity, unspecified; Z68.31 Body mass index [BMI] 31.0-31.9, adult; Z79.84 Long term (current) use of oral hypoglycemic drugs; Z79.82 Long term (current) use of aspirin; Z79.891 Long term (current) use of opiate analgesic; Z79.52 Long term (current) use of systemic steroids; Z98.890 Other specified postprocedural states; Z96.651 Presence of right artificial knee joint
CPT/HCPCS: 27447; 36415; 73560; 82948; 86850; 86900; 86901; 97161; 97166; 97535; J0690; A9270; C1713; C1776; J0166; J1100; J1171; J1885; J2003; J2250; J2270; J2405; J2704; J2795; J3010; J3290; J7120